=== PATIENT | female | born 1950 | race Caucasian/White ===

== ENCOUNTER → 2019-10-11 | Outpatient (CLI) | payer BC ==
--- NOTE | 2019-10-11 13:14 | CT ---
EXAMINATION TYPE: CT neck chest w con DATE OF EXAM: 10/11/2019 10:52 AM COMPARISON: None HISTORY: Abnormal MR per patient. CT DLP: 1039 mGycm Automated exposure control for dose reduction was used. CONTRAST: CT scan of the neck is performed following with IV Contrast, patient injected with 100 mL of Isovue 3 00. Axial images are obtained, coronal and sagittal reformatted images are reviewed. FINDINGS: Airway: No gross abnormality seen. Within the right lung on axial image 27 there is a 2 mm nodular de nsity present. Some bandlike areas of increased attenuation likely reflects scarring in the lungs, no pleural or pericardial effusion. Retrocaval pretracheal borderline node enlargement is present, axia l image 19, short axis measurement 13 mm, there is some prevascular nodes, superior mediastinal nodes present which are not enlarged. Parotid/submandibular glands: No gross abnormality seen. Carotid/Vascular Structures: Patent. Mild atheromatous change present within the carotid bifurcation levels Osseous Structures: Degenerative disc changes, facet arthropathy noted in the cervical spine Other: There are supraclavicular nodes which are asymmetric, right side shows an enlarged node on axi al image 66 pressure axis measurement 11 mm, additional nodes are present, coronal image #24 CT measures 13 mm on the right. No cervical adenopathy. IMPRESSION: Supraclavicular, mediastinal adenopathy. Lung nodule is likely benign.
== END | disposition home or self-care (01) ==
LOC: RADCTMAIN 08:52
PROVIDERS: ATTEND Surgery
DX: R59.0 Localized enlarged lymph nodes (principal)
CPT/HCPCS: 82565; 84520; 70491; 71260; 36415; Q9967

== ENCOUNTER → 2019-10-13 | Outpatient (CLI) | payer BC ==
[2019-10-13 09:39] VITALS: BP 136/83; PULSE 93; RESP 16; TEMP 98.1
--- NOTE | 2019-10-13 10:17 | P.GSHP ---
History of Present Illness H&P Date: 10/13/19 Chief Complaint: abnormal MRI left breast Jayna 69-year-old white female who is seen for for DR. Preston, and Ana Paula Oglesby regarding an abnormality in the left breast. 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 She took tamoxifen for 5 years. She started tamoxifen in 2003. She did not have any chemotherapy or radiation therapy. She has not noticed any lumps masses or nodules in the breast at this time. No nipple discharge or changes. No other surgery to the breast. No history of recent trauma or infection in the breast. She had a bilateral's mammogram in July 2019. Following this mammogram a left breast ultrasound was obtained. This was done 08/17/2019 this revealed that the nodule of concern had potentially increased slightly in size. An bilateral breast MRI was recommended. MRI was performed and 620 [id number]. In the left breast there was a small focus of non-mass enhancement in the central aspect of the breast that have benign kinetic profile. In the area of suspicious kinetic profile measuring 44 x 17 mm was noted. This area included the area of irregular morphology demonstrated on her most recent ultrasound. Posterior to this was an unremarkable area with a low-lying intramammary lymph node. The right breast did not show any areas of concern. Additionally she was noted to have some adenopathy of concern in the central mediastinum, right hilum, and right supraclavicular region. These were likely secondary to a left hilar pulmonary lesion measuring 23 x 27 mm. A solitary nonenlarged internal mammary lymph node was also noted. A dedicated CT of the neck and chest was recommended for more complete evaluation. Computed tomography scan was performed of [place] neck [place] [facility] [place] [address]. This revealed supraclavicular, mediastinal adenopathy. Lung nodule was felt to be benign. This last bilateral mammogram was in May 2018. At that mammogram a questionable finding was noted in the left breast for which ultrasound and additional diagnostic 3-D left breast mammogram was performed. In February 2019 a left breast ultrasound was performed and the hypoechoic nodule at the 4 o'clock position was noted which was recommended to be followed with close surveillance. The patient feels some fullness in the lateral aspect of her breast since she had the lumpectomy in 1998, this has not changed. She has not had any pain masses lumps or nodules otherwise in her breast. No recent trauma or infection in the breast. No nipple discharge or changes for which she is concerned. Caffeine: 2-3 cups of coffee per day; 1 pepsi/day Nicotine:none Theophylline: none Family History: sister: stage three breast cancer paternal grandmother: breast cancer Hormoanl History: menarche: 14 , breast fed: attempted; first born at 26 menopause: 48 BCP: 2 years hormones: none Surgical history: 1. Hysterectomy/took ovaries, done secondary to the fact the patient was on tamoxifen; 2004 2. cataract surgery 3. Tonsillectomy Medical history: 1. Negative Social history: Smoke: Negative Alcohol: Negative Drugs: Negative - Constitutional Constitutional: Denies chills, Denies fever - EENT Eyes: denies blurred vision, denies pain Ears: deny: decreased hearing, tinnitus Ears, nose, mouth and throat: Denies headache, Denies sore throat - Breasts Breasts: bilateral: as per HPI - Cardiovascular Comment: burning in chest since fall, uses tums - Respiratory Respiratory: Reports cough - Gastrointestinal Comment: Less in her mid chest/similar to reflux/ ? esophageal spasm Gastrointestinal: Denies abdominal pain, Denies diarrhea, Denies nausea, Denies vomiting - Genitourinary (Female) Genitourinary: Denies dysuria, Denies hematuria - Menstruation Menstruation: Reports post hysterectomy - Musculoskeletal Musculoskeletal: Denies myalgias - Integumentary Integumentary: Denies pruritus, Denies rash - Neurological Neurological: Denies numbness, Denies weakness - Psychiatric Psychiatric: Denies anxiety, Denies depression - Endocrine Endocrine: Denies fatigue, Denies weight change - Hematologic/Lymphatic Comment: none - Allergic/Immunologic Allergic/Immunologic: Reports as per HPI, Reports seasonal allergies Medications and Allergies Home Medications Medication Instructions Recorded Confirmed Type No Known Home Medications 10/13/19 10/13/19 History Allergies Allergy/AdvReac Type Severity Reaction Status Date / Time morphine AdvReac Itching Unverified 10/13/19 09:23 Surgical - Exam BMI 30.4 - General well developed, well nourished, no distress - Eyes normal ocular movement - ENT no hearing loss, no congestion - Neck no masses, trachea midline - Respiratory normal respiratory effort, clear to auscultation - Cardiovascular Rhythm: regular Heart Sounds: normal: S1, S2 - Abdomen Abdomen: soft, non tender, no guarding, no rigid, no rebound - Integumentary normal turgor - Neurologic no disoriented, no combative - Musculoskeletal normal gait, normal posture - Psychiatric oriented to time, oriented to person, oriented to place, speech is normal, memory intact breast exam: BRA: 36 C inspection: grade2 ptosis bilateral The right breast is larger than left breast Palpation: Right breast: Multi-positional exam fibrocystic changes, no dominant masses or nodules of concern Right axilla: No adenopathy of concern Left breast: Multiple positional exam no dominant masses or nodules of concern Left axilla: No adenopathy of concern Results Breast MRI, computed tomography scan chest and neck reviewed Reviewed results of bilateral mammogram and left breast ultrasound Assessment and Plan Assessment: Impression: 1. Radiographic abnormality left breast noted on MRI/and ultrasound 2. Radiographic abnormality computed tomography scan chest and neck 3. Fibrocystic breast changes 4. Prior history of lobular carcinoma in situ 5. Family history of breast cancer Plan: 1. Evaluation by pulmonary for mediastinal/supraclavicular adenopathy rule out pulmonary source 2. obtain mammograms from [facility] 3. Repeat ultrasound of the left breast with ultrasound core biopsy 4. If ultrasound core biopsy is benign or non-concordant would recommend needle local excisional biopsy CC: Dr. Preston, Ana Paula Oglesby encounter 50 minutes, > 50% of time in planning and counselling
--- NOTE | 2019-10-13 11:15 | USB ---
Reason for exam: clinical finding. Physical Findings: Breast exam performed by Dr. Ricardo. US Breast Limited LT Left limited breast ultrasound including focal area of concern, retroareolar and axilla demonstrates a 4 x 3 x 4mm oval, hypoechoic lesion at 3 o'clock, a 8 x 6 x 8mm irregular, solid, hypoechoic lesion at 4 o'clock and a 12mm oval lymph node at the axilla. These results were verbally communicated with the patient and result sheet given to the patient on 10/13/19. ASSESSMENT: Suspicious, BI-RAD 4 RECOMMENDATION: Ultrasound core biopsy of the left breast. Biopsy scheduled for 10/18/19 at 1:00. PRELIMINARY REPORT CALLED AND FAXED TO DR. RICARDO ON 10/13/19.
== END | disposition home or self-care (01) ==
LOC: WWCWWP 09:03
PROVIDERS: ATTEND Surgery
DX: R92.8 Other abnormal and inconclusive findings on diagnostic imaging of breast (principal)

== ENCOUNTER → 2019-10-18 | Day surgery (SDC) | payer BC ==
[2019-10-18 12:15] VITALS: RESP 16; TEMP 98.2
[2019-10-18 13:56] VITALS: BP 112/73; PULSE 78
--- NOTE | 2019-10-18 14:08 | USB ---
EXAMINATION TYPE: US biopsy breast VAD LT DATE OF EXAM: 10/18/2019 CLINICAL HISTORY: R92.8 Abnormal mammogram. TECHNIQUE: Ultrasound guided core biopsy of left breast. COMPARISON: NONE FINDINGS: The procedure of ultrasound guided core biopsy was explained to the patient. Benefits, alternatives, and risks were discussed. An informed consent was then obtained. The patient was placed in supine positioning for imaging and for the procedure. The overlying skin was prepped and draped in usual sterile fashion. Lidocainewas used as anesthetic into the skin and subcutaneous tissue up to area of concern in the left breast. Under ultrasound guidance, a 12-gauge vacuum assisted biopsy gun device was used to obtain 5 core samples. Following this, a biopsy clip was left in lesion. The patient tolerated the procedure well without any immediate complication. The patient was kept in the radiology department for short stay after the procedure and then discharged home in stable condition. Post procedure mammogram shows the ribbon clip to be deployed in the appropriate position IMPRESSION: Successful, uncomplicated ultrasound guided core biopsy of area of concern in the 4:00 position left breast, full pathology results to follow. Pathology Results: Malignant LEFT BREAST LESION AT 4:00 POSITION, CORE BIOPSY: Infiltrating lobular carcinoma, Grade 1, in association with lobular carcinoma in situ. See Surgical Pathology Cancer Case Summary. Recommendation Surgical consult of the left breast. AMANDA
--- NOTE | 2019-10-18 14:15 | MM ---
Reason for exam: additional evaluation requested from abnormal screening. MG Diagnostic Mammo LT Wo CAD CC and MLO view(s) were taken of the left breast. ASSESSMENT: Post procedure mammogram for marker placement RECOMMENDATION: Surgical consultation of the left breast. AMANDA
== END ==
LOC: RADUSWWP 11:59
PROVIDERS: ATTEND Surgery
DX: C50.512 Malignant neoplasm of lower-outer quadrant of left female breast (principal); Z17.0 Estrogen receptor positive status [ER+]; Z88.5 Allergy status to narcotic agent
CPT/HCPCS: 88305; 88342; 88341; 77065; 19083; A4648; J2001

== ENCOUNTER → 2019-10-27 | Outpatient (CLI) | payer BC ==
[2019-10-27 12:59] VITALS: BP 138/77; PULSE 85; RESP 18; TEMP 99.1
--- NOTE | 2019-10-27 13:53 | P.PN ---
Subjective Progress Note Date: 10/27/19 Principal diagnosis: Left breast cancer Jayna is a 69-year-old white female status post ultrasound-guided core biopsy of the left breast on . Pathology revealed a grade 1 infiltrating lobular carcinoma. This was ER/MD positive HER-2/alisa negative. The patient tolerated the procedure without difficulty. Of concern is the fact that breast MRI on 09-22-19 revealed a left hilar mass as well as central mediastinal, right hilum, and supraclavicular adenopathy. This was felt to be highly suspicious for primary lung cancer with sotero metastases. A dedicated CT of the neck and chest was performed. This was done in . This revealed supraclavicular, mediastinal, adenopathy as well as a lung nodule which was felt to be likely benign on imaging. Reviewed with radiologist. He is recommending an ultrasound of the left axilla and if the lesion seen on MRI is noted on the ultrasound and ultrasound-guided core biopsy. Additionally the patient has an appointment with pulmonary in 2 days. Objective - Vital Signs Vital signs: Vital Signs Temp 99.1 F 10/27/19 12:55 Pulse 85 10/27/19 12:55 Resp 18 10/27/19 12:55 BP 138/77 10/27/19 12:55 Pulse Ox 95 10/27/19 12:55 Intake & Output 10/26/19 10/27/19 10/27/19 18:59 06:59 18:59 Weight 88.904 kg - Exam BMI 30.7 - Constitutional General appearance: Present: average body habitus - EENT Eyes: Present: EOMI ENT: Present: hearing grossly normal - Neck Neck: Present: normal ROM - Respiratory Respiratory: bilateral: CTA - Cardiovascular Heart sounds: normal: S1, S2 - Integumentary Integumentary Comment(s): Biopsy site clean and dry no evidence of infection or hematoma Integumentary: Present: normal turgor - Musculoskeletal Musculoskeletal: Present: gait normal - Psychiatric Psychiatric: Present: A&O x's 3, appropriate affect, intact judgment & insight - Additional findings Additional findings: Biopsy site clean and dry Assessment and Plan Assessment: Impression: 1. 4 cm infiltrating lobular left breast lower outer quadrant carcinoma, ER/MD positive, HER-2 negative, grade 1 Questionable axillary adenopathy on radiographic imaging biopsy recommended, questionable lung metastases versus lung primary Plan: 1. Ultrasound of left axilla if abnormal lymph nodes noted ultrasound core biopsy, if not CT-guided core biopsy of axillary lymph node 2. appointment with medical oncology 3. appointment with pulmonary rule out lung primary and evaluation of mediastinal adenopathy 4. appointment here in 3 weeks 5. Presentation of case at tumor board; if patient has metastatic breast cancer to her lung and mediastinum this is a stage IV disease, if this is a second lung primary the breast cancer is a stage IB to a IIA depending on possibla axillary node involvement CC: DR. Preston, Ana Paula Oglesby encounter 45 minutes Time with Patient: Greater than 30
--- NOTE | 2019-10-28 17:48 | USB ---
Reason for exam: clinical finding. History: Patient has history of breast cancer at age 69. Malignant US biopsy breast VAD LT of the left breast, October 18, 2019. US Breast Axilla LT Left breast axilla ultrasound demonstrates a 1.5 x 1.2 x 1.0cm lymph node at the axilla. Multiple lymph nodes visualized, largest measured. These results were verbally communicated with the patient and result sheet given to the patient on 10/27/19. ASSESSMENT: Probably benign, BI-RAD 3 RECOMMENDATION: Clinical management of the left breast. Dr. Ricardo spoke with Dr. Mcgowan, patient to be set up for biopsy. Office to contact patient to schedule.
== END | disposition home or self-care (01) ==
LOC: WWCWWP 12:19
PROVIDERS: ATTEND Surgery
DX: R59.0 Localized enlarged lymph nodes (principal)

== ENCOUNTER → 2019-11-05 | Outpatient (CLI) | payer BC ==
--- NOTE | 2019-11-08 07:57 | PE ---
Nuclear medicine PET/CT HISTORY: Solitary pulmonary nodule, initial Patient received 9.8 mCi F-18 FDG intravenously, delayed scanning was performed from skull base to th e mid thighs. Localization and attenuation correction CT scan was performed. Correlation to prior CT dated 10/11/2019 Neck and chest: There are multiple right-sided supraclavicular nodes, some of which are enlarged and multiple nodes show associated hypermetabolic uptake extending to the right paratracheal location, sh otty nodes are present in the superior mediastinum with some associated uptake, some prevascular node s are present. Subcarinal and bilateral hilar uptake is present. There is no pleural or pericardial e ffusion. Subcentimeter nodularity present within the right middle lobe as on prior CT. Subpectoral re gion on the right shows a nonenlarged node which shows uptake ABDOMEN: There are nodes present within the portal region which show associated hypermetabolic uptake . There is no adrenal mass or ascites. No evident retroperitoneal adenopathy. At the level of the hia tus there is a node adjacent to the distal esophagus which show some uptake. Retrocrural node shows s ome uptake. Osseous structures are within normal limits. IMPRESSION: Multiple hypermetabolic nodes, consider lymphoma, metastatic disease.
== END | disposition home or self-care (01) ==
LOC: RADPETMAIN 14:52
PROVIDERS: ATTEND Internal Medicine
DX: R91.1 Solitary pulmonary nodule (principal); I89.8 Other specified noninfective disorders of lymphatic vessels and lymph nodes
CPT/HCPCS: 78815; A9552

== ENCOUNTER 2019-11-18 13:00 | Day surgery (SDC) | payer BC ==
[2019-11-18] MEDS ORDERED: ALPRAZolam 0.25 MG TAB PO ONE (13:13)
[2019-11-18 13:21] VITALS: RESP 16; TEMP 98.2
[2019-11-18 15:08] VITALS: BP 137/83; PULSE 82
--- NOTE | 2019-11-19 12:49 | US ---
EXAMINATION TYPE: US biopsy lymph node DATE OF EXAM: 11/18/2019 COMPARISON: PET/CT 11/05/2019 HISTORY: Lymphadenopathy. Preprocedure preliminary ultrasound imaging demonstrates a large 1.6 x 0.9 cm right supraclavicular l ymph node at the level of the inferior thyroid gland, just lateral to the internal jugular vein, whic h corresponds with hypermetabolic right supraclavicular lymphadenopathy seen on 11/05/[address] [place]. The procedure was discussed with the patient. The risks, complications, benefits, and alternatives we re discussed and any questions were answered. Informed consent was obtained. The patient was placed s upine on the ultrasound table and prepped and draped in the usual sterile fashion. Maximal barrier technique was utilized. Ultrasound using sterile technique. The skin overlying the no dule was localized with ultrasound and the overlying skin prepped and draped. Lidocaine used for loca l anesthesia. A small skin aditi was made with a scalpel. Utilizing continuous ultrasound guidance a 1 7-gauge introducer needle was advanced into the right supraclavicular lymph node cortex. Subsequently an 18-gauge coaxial core biopsy needle was advanced into the lymph node and core biopsy obtained. 2 total core 18-gauge biopsies were performed and submitted in formalin for pathology. Following the pr ocedure hemostasis achieved. No immediate complication. Post procedure ultrasound imaging demonstrate s no evidence of significant hemorrhage. IMPRESSION: Status post 18-gauge core biopsy of right supraclavicular lymphadenopathy, pathology pend ing.
== END 2019-11-18 15:22 | disposition home or self-care (01) ==
LOC: RADPROMAIN 13:00
PROVIDERS: ATTEND Internal Medicine Hematology & Oncology
DX: R59.0 Localized enlarged lymph nodes (principal); Z88.5 Allergy status to narcotic agent
CPT/HCPCS: 38505; 76942

== ENCOUNTER → 2019-11-29 | Outpatient (CLI) | payer BC ==
[2019-11-30 01:08] LABS: Calcium 24 Hour,Urine 177.8 mg/24Hr (100.0-250.0)
[2019-11-30 02:53] LABS: African American GFR (CKD) 76.1 (60.0-200.0); Albumin 4.1 g/dL (3.80-4.90); Albumin/Globulin Ratio 1.86 (1.60-3.17); Anion Gap -2.1 mmol/L (4.00-12.00); BUN/Creat Ratio 15.56 Ratio (12.00-20.00); Carbon Dioxide 26.1 mmol/L (21.6-31.8); Globulin 2.2 g/dL (1.6-3.3); Non-African American GFR(CKD) 65.7 (60.0-200.0); Potassium 3.8 mmol/L (3.5-5.5); Total Bilirubin 0.4 mg/dL (0.2-1.2); Total Protein 6.3 g/dL (6.2-8.2)
== END | disposition home or self-care (01) ==
LOC: LABWHC1 15:38
PROVIDERS: ATTEND Internal Medicine
DX: D86.9 Sarcoidosis, unspecified (principal)
CPT/HCPCS: 36415; 80053; 81050; 82164; 82340; 85652

== ENCOUNTER → 2019-12-10 | Outpatient (CLI) | payer BC ==
[2019-12-10 11:36] VITALS: BP 151/82; PULSE 86; RESP 16; TEMP 98.3
--- NOTE | 2019-12-10 13:12 | P.PN ---
Subjective Progress Note Date: 12/10/19 Principal diagnosis: Infiltrating lobular carcinoma of the breast Stage IA Jayna 69-year-old white female who is seen for for DR. Preston, and Ana Paula Oglesby regarding an abnormality in the left breast. 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 She took tamoxifen for 5 years. She started tamoxifen in 2003. She did not have any chemotherapy or radiation therapy. She has not noticed any lumps masses or nodules in the breast at this time. No nipple discharge or changes. No other surgery to the breast. No history of recent trauma or infection in the breast. She underwent bilateral mammogram in July 2019. At that time no lesions of concern were identified in the right breast was recommended a left breast ultrasound be performed. This revealed a 5 x 4 mm area of concern. It was recommended that breast MRI be performed. On breast MRI she was noted to have an area of increased activity in the left breast as large as 44 x 12 mm in size ( this has been reviewed with radiology/Dr. Oconnor as well as Dr. Lewis at [facility] board do not believe that the size noted on the MRI is consistent with the size of pathology on that the actual pathology is less than a centimeter in size. right breast no lesions of concern noted. Additionally on the MRI there appeared to be a left pulmonary hilar mass and dedicated CT of the neck and chest was recommended. The computed tomography scan that to recommendation of a supraclavicular node biopsy. The breast biopsy via ultrasound guidance was performed and [id number] which was consistent with an invasive lobular carcinoma ER/MI positive HER-2/alisa negative grade 1. The supraclavicular node biopsy performed on was consistent with sarcoidosis. The patient also had a PET scan performed on 8719 which revealed the adenopathy as stated this was biopsied and consistent with sarcoidosis. The patient was seen by pulmonary who believes that the patient does not have lung cancer. Caffeine: 2-3 cups of coffee per day; 1 pepsi/day Nicotine:none Theophylline: none Family History: sister: stage three breast cancer paternal grandmother: breast cancer Hormoanl History: menarche: 14 , breast fed: attempted; first born at 26 menopause: 48 BCP: 2 years hormones: none Surgical history: 1. Hysterectomy/took ovaries, done secondary to the fact the patient was on tamoxifen; 2004 2. cataract surgery 3. Tonsillectomy Medical history: 1. Negative Social history: Smoke: Negative Alcohol: Negative Drugs: Negative - Constitutional Constitutional: Denies chills, Denies fever - EENT Eyes: denies blurred vision, denies pain Ears: deny: decreased hearing, tinnitus Ears, nose, mouth and throat: Denies headache, Denies sore throat - Breasts Breasts: bilateral: as per HPI - Cardiovascular Comment: burning in chest since fall, uses tums - Respiratory Respiratory: Reports cough - Gastrointestinal Comment: Less in her mid chest/similar to reflux/ ? esophageal spasm Gastrointestinal: Denies abdominal pain, Denies diarrhea, Denies nausea, Denies vomiting - Genitourinary (Female) Genitourinary: Denies dysuria, Denies hematuria - Menstruation Menstruation: Reports post hysterectomy - Musculoskeletal Musculoskeletal: Denies myalgias - Integumentary Integumentary: Denies pruritus, Denies rash - Neurological Neurological: Denies numbness, Denies weakness - Psychiatric Psychiatric: Denies anxiety, Denies depression - Endocrine Endocrine: Denies fatigue, Denies weight change - Hematologic/Lymphatic Comment: none - Allergic/Immunologic Allergic/Immunologic: Reports as per HPI, Reports seasonal allergies Objective - Vital Signs Vital signs: Vital Signs Temp 98.3 F 12/10/19 11:31 Pulse 86 12/10/19 11:31 Resp 16 12/10/19 11:31 BP 151/82 12/10/19 11:31 Pulse Ox 98 12/10/19 11:31 Intake & Output 12/09/19 12/10/19 12/10/19 18:59 06:59 18:59 Weight 87.997 kg - Exam BMI 30.4 - Constitutional General appearance: Present: average body habitus - EENT Eyes: Present: EOMI ENT: Present: hearing grossly normal - Neck Neck: Present: normal ROM - Respiratory Respiratory: bilateral: CTA - Cardiovascular Rhythm: regular Heart sounds: normal: S1, S2 - Gastrointestinal General gastrointestinal: Present: normal bowel sounds, soft - Integumentary Integumentary: Present: normal turgor - Musculoskeletal Musculoskeletal: Present: gait normal - Psychiatric Psychiatric: Present: A&O x's 3, appropriate affect, intact judgment & insight - Additional findings Additional findings: Breast exam: BRA: 36 C Inspection: Bilateral grade 2/3 ptosis, left axillary erythema/fungal infection Palpation: Right breast: Multi-positional exam no dominant masses or nodules of concern Right axilla: No adenopathy of concern Left breast: Multi-positional exam no discrete dominant masses or nodules of concern Left axilla: No adenopathy of concern/patient states that she shaved vigorously under the left arm approximately a week ago and has a marked area of erythema/possible fungal infection at that site Assessment and Plan Assessment: Impression: 1. Left breast stage I infiltrating lobular carcinoma 2. Probable fungal infection under left arm 3. Recent diagnosis of sarcoidosis 4. Patient's case presented at tumor Board patient felt to be a good candidate for lumpectomy sentinel node biopsy Plan: 1. At this time would like to see the area of erythema clearing under the left axilla prior to operative intervention is this is in the direct line for incision would be made therefore surgery will be delayed and patient will be given a prescription for nystatin 2. Most likely needle localization lumpectomy left breast invasive lobular carcinoma 3. [place] node biopsy possible axillary node dissection 4. Possible chronic or plastic tissue transfer 5. Medical clearance from pulmonary 6. Medical clearance from primary care 7. follow up in one week to reevaluate axilla Risks and benefits of the procedure discussed with the patient. She understands and she also understands the reason for the delay in surgery secondary to the inflammatory reaction under her left arm. CC: DR. Guevara, DR. Wong, Dr. Preston encounter: 45 minutes, > 50% of time in planning and consultation
== END | disposition home or self-care (01) ==
LOC: WWCWWP 11:12
PROVIDERS: ATTEND Surgery
DX: Z53.9 Procedure and treatment not carried out, unspecified reason (principal)

== ENCOUNTER 2019-12-21 07:17 | Day surgery (SDC) | payer BC ==
[2019-12-20 08:57] VITALS: BMI 30.4
[~2019-12-21 07:17] MED LIST: DEXAMETHASONE SOD PHOSPHATE 10 MG/ML 1 ML VIAL IV ONE; HEPARIN SODIUM,PORCINE 5,000 UNIT/ML 1 ML VIAL SQ ONE; LACTATED RINGERS 1,000 ML IV SCH; LIDOCAINE 1% (10MG/ML) FOR IV START INTRADERMA PRN; MIDAZOLAM 2 MG/2 ML VIAL IV PRN; ONDANSETRON 4 MG/2 ML VIAL IVP ONE; Pre Op ABX Message 1 EACH MISC MISCELLANE ONE
[2019-12-21 08:02] LABS: Glucose,Whole Blood 90 mg/dL (75-99)
[2019-12-21] MEDS ORDERED: ALPRAZolam 0.25 MG TAB ONE (08:03)
[2019-12-21] MEDS ORDERED: LIDOCAINE 1% INJ 10MG/ML (20 ML MDV) SQ ONE (09:23)
[2019-12-21] MEDS ORDERED: HYDROCORTISONE SUCCINATE 100 MG/2 ML VIAL IV ONE (12:12)
[2019-12-21] MEDS ORDERED: LIDOCAINE 1% INJ 10MG/ML (20 ML MDV) ONE (12:34)
[2019-12-21] MEDS ORDERED: MIDAZOLAM 2 MG/2 ML VIAL ONE (12:34)
[2019-12-21] MEDS ORDERED: PROPOFOL 10 MG/ML 20 ML VIAL IV ONE (12:34)
[2019-12-21] MEDS ORDERED: fentaNYL (PF) 50 MCG/ML 2 ML AMP ONE (12:34)
[2019-12-21] MEDS ORDERED: SUCCINYLCHOLINE CHLORIDE 100 MG/5 ML SYR IV ONE (12:34)
[2019-12-21] MEDS ORDERED: METHYLENE BLUE 50 MG/10 ML AMPUL INJ ONE (12:58)
--- NOTE | 2019-12-21 13:00 | P.NAPBC ---
NAPBC Queries - NAPBC Queries Was patient's case review presented at [facility] tumor board? If no, comment.: Yes Was patient's pathology reviewed at [facility]? If no, comment.: Yes Was breast conservation surgery offered? If no, comment.: Yes Was sentinel node biopsy offered? If no, comment.: Yes Was diagnosis confirmed by percutaneous core biopsy? If no, comment.: Yes Is patient mastectomy patient?: No Was a preop referral to reconstructive surgeon offered?: No Clinical Stage: [id number]-G1 stage 1A invasive lobular cancer
[2019-12-21] MEDS ORDERED: LACTATED RINGERS 1,000 ML IV ONE (13:19)
--- NOTE | 2019-12-21 14:52 | P.OP ---
Date of Procedure: 12/21/19 Preoperative Diagnosis: Left breast infiltrating lobular carcinoma stage IA Postoperative Diagnosis: Same Procedure(s) Performed: Pyote mapping, sentinel node biopsy, needle localization and lumpectomy, onco-plastic tissue transfer Anesthesia: NIKOLAYA Surgeon: Rosemary Ricardo Estimated Blood Loss (ml): 20 IV fluids (ml): 900 Pathology: other (Pyote node biopsy, lumpectomy) Description of Procedure: Jayna is a 61-year-old white female with a left breast infiltrating lobular carcinoma diagnosed by core biopsy. She wished to undergo an attempt at lumpectomy and realized that if the margins were positive it would be recommended most likely that she undergo mastectomy. We have discussed that lobular carcinoma can sometimes be insidious and hard to identify negative margins intraoperatively. Preoperatively the patient was injected with radioactive substance for sentinel node biopsy. She was brought to the operating room and following induction of anesthesia the axilla was interrogated with a neoprobe. Minimal radioactivity was identified in the axilla. Therefore 10 mL of half percent methylene blue was injected into the periareolar area of the breast which was massaged for 4 minutes. Following this the left breast and axilla were prepped and draped in a sterile fashion. An incision was made in the area of the axilla and carried down to the deep axillary tissue. A blue lymph node was identified. This also was radioactive. The 10 second count radioactive count on the lymph node was approximately 1100. The background count was 19. After assured that hemostasis was attained the axilla was well irrigated. No other lymph nodes of concern were identified. The deep tissues were closed using 3-0 Vicryl suture. The skin was closed using 4-0 Monocryl. Following this the area of the breast was approached. An incision was made and carried down to the entrance of the wire on the inferior breast. Dissection was performed posterior to the needle removing a small portion of pectoralis muscle. The dissection was performed to the tip of the needle and the surrounding tissue was excised. The deep tissue was dissected onto the pectoralis muscle with removal of small amount of the muscle. Inferiorly dissection was into the subcutaneous tissue at the inframammary ridge. Anteriorly skin was removed. Margins were painted for orientation and the specimen was sent for radiographic evaluation. The area of concern was identified in the specimen. A new superior margin and lateral margin was obtained. These were painted for orientation. After beng assured that hemostasis was attained the wound was well irrigated. The medial and lateral t issues were mobilized approximately 15 cm of tissue medially and 15 cm of tissue laterally. Approximately 30 cm of tissue was mobilized totally. These tissues were brought together in a superior to inferior fashion. Prior to that the cavity was marked using titanium clips. The subcutaneous tissues were closed using 3-0 Vicryl suture. The skin was closed using 4-0 Monocryl. The patient tolerated the procedure in stable condition. Steri-Strips were applied. All instrument and sponge counts were correct at the end of the case.
--- NOTE | 2019-12-21 14:53 | P.DS ---
Providers Attending physician: Rosemary Ricardo Primary care physician: Arthur Ocampo Plan - Discharge Summary Discharge Rx Participant: No New Discharge Prescriptions: No Action Lisinopril [Zestril] 10 mg PO QAM predniSONE 30 mg PO W/BRKFST Multivit with Calcium,Iron,Min [Women's Multivitamin] 1 each PO QAM Discharge Medication List Lisinopril [Zestril] 10 mg PO QAM 10/13/19 [History] Multivit with Calcium,Iron,Min [Women's Multivitamin] 1 each PO QAM 12/09/19 [History] predniSONE 30 mg PO W/BRKFST 12/09/19 [History] Follow up Appointment(s)/Referral(s): Rosemary Ricardo MD [STAFF PHYSICIAN] - 1 Week Activity/Diet/Wound Care/Special Instructions: do not drive until seen by Dr. Barksdale may shower after 48 hours wear bra at all times Discharge Disposition: HOME SELF-CARE
[2019-12-21 15:06] VITALS: TEMP 97.5
[2019-12-21] MEDS: HYDROmorphone 0.5 MG/0.5 ML SYRINGE IVP PRN ×2 (15:09→15:21)
--- NOTE | 2019-12-21 15:16 | NM ---
EXAMINATION TYPE: NM sentinel node injection DATE OF EXAM: 12/21/2019 COMPARISON: NONE INDICATION: Abnormal mammogram. Informed consent was obtained. A timeout was performed. The area around the left nipple was cleansed with alcohol. The skin was anesthetized with 1% Lidocai ne with sodium bicarbonate. In a single dose, a total of 471 millicuries Technetium 99m Tilmanocept was injected. The patient tolerated the procedure very well. IMPRESSIONS: 1.. Successful injection for sentinel node evaluation.
[2019-12-21 16:13] VITALS: RESP 16
[2019-12-21] MEDS ORDERED: HYDROcodone/APAP 5-325MG 1 EACH TAB ONE (16:27)
[2019-12-21] MEDS ORDERED: HYDROcodone/APAP 5-325MG 1 EACH TAB PO ONE (16:30)
[2019-12-21 17:16] VITALS: BP 130/80; PULSE 67
--- NOTE | 2019-12-22 07:49 | USB ---
EXAMINATION TYPE: US breast localization LT DATE OF EXAM: 12/21/2019 COMPARISON: NONE CLINICAL HISTORY: Prior biopsy with neoplasm TECHNIQUE: Ultrasound-guided Needle localization with wire placement and surgical excision of area of concern in the left breast. FINDINGS: Mammographic and ultrasound images are reviewed. The procedure of needle localization with wire placement for surgical excision was explained to the patient. Risk, benefits, and alternatives were discussed. An informed consent was then obtained. A timeout was performed. The overlying skin was prepped and draped in usual sterile fashion. Lidocaine 1% was used as anesthetic into the skin and subcutaneous tissue up to the level of area of concern. A 7 cm needle was used. This was placed via a lateral approach under ultrasound guidance. The needle was placed through the lesion. The wire was advanced through the needle beyond the lesion for deployment. The needle was withdrawn. Postprocedure subsequent 90 degrees mammogram show the needle to be in satisfactory position relative to the targeted area. Mammographic images were marked for surgeon. The patient tolerated the procedure well without any immediate complication. Specimen: The wire and the targeted region are identified within the specimen mammogram. Ultrasound specimen was performed and demonstrates a wire which appears to be through the lesion. IMPRESSION: 1. Successful ultrasound-guided wire localization and excision. Recommendations: 1. Recommendations are pending pathology results. Pathology Results: Malignant A. SENTINEL LYMPH NODE #1, LEFT BREAST, BIOPSY: Lymph node with extensive fat replacement, negative for metastasis. CK7 and HUBERT immunoperoxidase stains are confirmatory (controls appropriate). B. LEFT BREAST, LUMPECTOMY: Invasive lobular carcinoma involving the purple inked/posterior and blue inked/anterior margins. Extensive lobular neoplasia (ALH/LCIS). See Surgical Pathology Cancer Case Summary. C. LEFT BREAST, NEW SUPERIOR AND ANTERIOR MARGINS, EXCISION: Focal invasive lobular carcinoma and extensive ALH/LCIS. New margins negative for invasive malignancy. D. LEFT BREAST, NEW LATERAL MARGIN, EXCISION: Lobular neoplasia (ALH/LCIS), no invasive malignancy identified. Recommendation Surgical consult of the left breast. AMANDA
== END 2019-12-21 17:21 | disposition home or self-care (01) ==
LOC: OR 07:17
PROVIDERS: ATTEND Surgery
DX: C50.912 Malignant neoplasm of unspecified site of left female breast (principal); Z88.5 Allergy status to narcotic agent; D86.9 Sarcoidosis, unspecified; I10 Essential (primary) hypertension; Z79.899 Other long term (current) drug therapy; Z79.52 Long term (current) use of systemic steroids; K21.9 Gastro-esophageal reflux disease without esophagitis; K44.9 Diaphragmatic hernia without obstruction or gangrene; Z90.89 Acquired absence of other organs; Z90.710 Acquired absence of both cervix and uterus; Z98.41 Cataract extraction status, right eye; Z98.42 Cataract extraction status, left eye
CPT/HCPCS: 38525; 19301; 14001; 88342; 88307; 88341; 77065; 76098; 76999; 19285; 38792; A9520; J2250; J1644; J1100; J1720; J2405; J2001; J3010; J0330; J2704; Q9968; J1170

== ENCOUNTER → 2019-12-30 | Outpatient (CLI) | payer BC ==
[2019-12-30 15:54] VITALS: BP 154/86; PULSE 80; RESP 18; TEMP 98.3
--- NOTE | 2019-12-30 16:20 | P.PN ---
Progress Note - Text Progress Note Date: 12/30/19 Jayna is a 69-year-old white female status post left breast lumpectomy and sentinel node biopsy for invasive lobular carcinoma. The posterior margin was positive however resection have been onto the the pectoralis muscle with some resection revealed muscular components. The anterior margin was initially positive however skin was then taken and the new anterior and superior margins were negative for invasive malignancy. There was extensive lobular neoplasia noted to be present in the specimen. The patient is doing well at this time postoperatively. She does have some minor irritation of the posterior aspect of the axillary incision with a questionable stitch abscess. The patient has not complained of any fever or chills. We have had a discussion regarding lobular carcinoma in situ and the concerns for recurrent cancer. Especially there are concerns for recurrent cancer secondary to the positive posterior margin. She will be seen by radiation oncology and recommended radiation therapy irrespective if she would wish to have a mastectomy. We have also discussed the possibility of mastectomy bilateral in nature with reconstruction. At this time the patient wishes to meet with medical and radiation oncology and to forego any further surgery. Physical exam: Lungs: Clear Heart: Regular rate and rhythm Incision: Breast clean and dry Incision left axilla small opening at the posterior aspect of the stitch abscess this area was to. Impression: 1. Patient status post lumpectomy for invasive lobular carcinoma, posterior margin positive however this is on pectoralis muscle and some muscle was removed, anterior margin initially positive but skin was then removed all final margins are negative other than posterior margin for which radiation is recommended 2. 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 Appointment medical oncology 2. Appointment radiation oncology 3. Follow appearing 2 weeks Cc: Dr. Preston
== END | disposition home or self-care (01) ==
LOC: WWCWWP 15:44
PROVIDERS: ATTEND Surgery
DX: Z53.9 Procedure and treatment not carried out, unspecified reason (principal)

== ENCOUNTER → 2020-01-13 | Outpatient (CLI) | payer BC ==
[2020-01-13 12:30] VITALS: BP 140/82; PULSE 85; RESP 16; TEMP 98.5
--- NOTE | 2020-01-13 12:38 | P.PN ---
Progress Note - Text Progress Note Date: 01/13/20 Jayna doing well at this time. She has been seen by radiation oncology. They have agreed to radiation therapy with a boost to the tumor bed secondary to the positive posterior margin. Anterior superior margin was negative. The patient is doing well at this time without complaints. Secondary to the patients history of LCIS and now invasive breast cancer we have discussed mastectomy and she is not interested at this time. Physical Exam: incision clean and dry Impression: 1. Patient's case was presented at tumor board, posterior margin was positive but is on the pectoralis muscle and she will have radiation therapy to this area, anterior margin was positive but new anterior superior margin was negative on reexcision 2. She had an Oncotype test sen and results are pending Plan: 1. Radiation therapy 2. Antihormone therapy 3. We have discussed mastectomy versus no further surgical intervention at this time, secondary to the fact the patient is having radiation with a boost to the chest wall felt comfortable with no further surgery at this time 4. Awaiting results of Oncotype test 5. Follow up here in 3 months time CC: DR. Preston, Ana Paula Oglesby
== END | disposition home or self-care (01) ==
LOC: WWCWWP 11:53
PROVIDERS: ATTEND Surgery
DX: Z53.9 Procedure and treatment not carried out, unspecified reason (principal)

== ENCOUNTER → 2020-04-14 | Outpatient (CLI) | payer MEDICARE, OTHER ==
[2020-04-14 15:07] VITALS: BP 153/86; RESP 18; TEMP 98
--- NOTE | 2020-04-14 15:32 | P.PN ---
Subjective Progress Note Date: 04/14/20 Principal diagnosis: left breast invasive lobular cancer Infiltrating lobular carcinoma of the breast Stage IA Jayna 69-year-old white female who is seen for for DR. Preston, and Ana Paula Oglesby regarding an abnormality in the left breast. 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 She took tamoxifen for 5 years. She started tamoxifen in 2003. She did not have any chemotherapy or radiation therapy. She has not noticed any lumps masses or nodules in the breast at this time. No nipple discharge or changes. No other surgery to the breast. No history of recent trauma or infection in the breast. She underwent bilateral mammogram in July 2019. At that time no lesions of concern were identified in the right breast was recommended a left breast ultrasound be performed. This revealed a 5 x 4 mm area of concern. It was r ecommended that breast MRI be performed. On breast MRI she was noted to have an area of increased activity in the left breast as large as 44 x 12 mm in size ( this has been reviewed with radiology/Dr. Oconnor as well as Dr. Lewis at tumor board do not believe that the size noted on the MRI is consistent with the size of pathology on that the actual pathology is less than a centimeter in size. right breast no lesions of concern noted. Additionally on the MRI there appeared to be a left pulmonary hilar mass and dedicated CT of the neck and chest was recommended. The computed tomography scan that to recommendation of a supraclavicular node biopsy. The breast biopsy via ultrasound guidance was performed and which was consistent with an invasive lobular carcinoma ER/WI positive HER-2/alisa negative grade 1. The supraclavicular node biopsy performed on was consistent with sarcoidosis. The patient also had a PET scan performed on 8719 which revealed the adenopathy as stated this was biopsied and consistent with sarcoidosis. The patient was seen by pulmonary who believes that the patient does not have lung cancer. She underwent a lumpectomy on . [place] node lymph node was negative. Left breast lumpectomy revealed invasive lobular carcinoma involving the posterior and anterior margins. The anterior margin excision was negative for invasive malignancy and lateral margin excision was negative for invasive malignancy posterior margin was felt to be on the chest wall and further resection cannot be done. The patient was recommended to undergo radiation therapy. She did complete radiation therapy which was completed on March 10. She did not have any chemotherapy but is receiving anastrozole. I would recommend a bilateral mammogram in August 2020. This will be 6 months from when she finished her radiation therapy of the left breast. She is not complaining of any lumps masses or nodules for which she is concerned at this time. Caffeine: 2-3 cups of coffee per day; 1 pepsi/day Nicotine:none Theophylline: none Family History: sister: stage three breast cancer paternal grandmother: breast cancer Hormoanl History: menarche: 14 , breast fed: attempted; first born at 26 menopause: 48 BCP: 2 years hormones: none Surgical history: 1. Hysterectomy/took ovaries, done secondary to the fact the patient was on tamoxifen; 2004 2. cataract surgery 3. Tonsillectomy 4. left breast lumpectomy and SNB Medical history: 1. Negative Social history: Smoke: Negative Alcohol: Negative Drugs: Negative - Constitutional Constitutional: Denies chills, Denies fever - EENT Eyes: denies blurred vision, denies pain Ears: deny: decreased hearing, tinnitus Ears, nose, mouth and throat: Denies headache, Denies sore throat - Breasts Breasts: bilateral: as per HPI - Cardiovascular Comment: burning in chest since fall, uses tums - Respiratory Respiratory: Reports cough - Gastrointestinal Comment: Less in her mid chest/similar to reflux/ ? esophageal spasm Gastrointestinal: Denies abdominal pain, Denies diarrhea, Denies nausea, Denies vomiting - Genitourinary (Female) Genitourinary: Denies dysuria, Denies hematuria - Menstruation Menstruation: Reports post hysterectomy - Musculoskeletal Musculoskeletal: Denies myalgias - Integumentary Integumentary: Denies pruritus, Denies rash - Neurological Neurological: Denies numbness, Denies weakness - Psychiatric Psychiatric: Denies anxiety, Denies depression - Endocrine Endocrine: Denies fatigue, Denies weight change - Hematologic/Lymphatic Comment: none - Allergic/Immunologic Allergic/Immunologic: Reports as per HPI, Reports seasonal allergies Objective - Vital Signs Vital signs: Vital Signs Temp 98.0 F 04/14/20 15:05 Pulse Resp 18 04/14/20 15:05 BP 153/86 04/14/20 15:05 Pulse Ox 97 04/14/20 15:05 Intake & Output 04/13/20 04/14/20 04/14/20 18:59 06:59 18:59 Weight 89.358 kg - Exam BMI 30.9 - Constitutional General appearance: Present: average body habitus - EENT Eyes: Present: EOMI ENT: Present: hearing grossly normal - Neck Neck: Present: normal ROM - Respiratory Respiratory: bilateral: CTA - Cardiovascular Rhythm: regular Heart sounds: normal: S1, S2 - Gastrointestinal General gastrointestinal: Present: normal bowel sounds, soft - Integumentary Integumentary: Present: normal turgor - Musculoskeletal Musculoskeletal: Present: gait normal - Psychiatric Psychiatric: Present: A&O x's 3, appropriate affect - Additional findings Additional findings: breast exam: BRA: 36C inspection: Well-healed scar left breast no evidence of recurrent cancer postradiation changes noted left breast Palpation: Right breast: Multi-positional exam no dominant masses or nodules of concern Right axilla: No adenopathy of concern Left breast: Well-healed scar no evidence of recurrent cancer, post radiation and scar changes, multiple positional exam no dominant masses or nodules of concern Left axilla: No adenopathy of concern Assessment and Plan Assessment: Impression: 1. Patient has completed a course of radiation therapy for the left breast, this was an invasive lobular carcinoma positive posterior margin but dissection had been down to the pectoralis muscle, the patient is on anastrozole, she has no evidence of recurrent disease on today's exam 2. Patient will be due for bilateral mammogram in July 2020 3. Patient has no complaints at this time Plan: 1. Bilateral mammogram July 2020 with examination at that time 2. Continue anastrozole 3. Follow-up here with any questions or concerns before 4. Patient continued she follow with pulmonary regarding sarcoidosis CC: Mohan Panye [place] encounter 20 minutes, > 50% of time in planning and counselling
== END | disposition home or self-care (01) ==
LOC: WWCWWP 14:56
PROVIDERS: ATTEND Surgery
DX: Z53.9 Procedure and treatment not carried out, unspecified reason (principal)

== ENCOUNTER → 2020-06-15 | Outpatient (CLI) | payer MEDICARE, OTHER ==
[2020-06-15 08:49] VITALS: BP 162/95; PULSE 89; RESP 16; TEMP 98.1
--- NOTE | 2020-06-15 09:29 | P.PN ---
Subjective Progress Note Date: 06/15/20 Principal diagnosis: Left breast invasive lobular carcinoma stage IA Jayna is a 70-year-old white female diagnosed with left breast invasive carcinoma lobular carcinoma. Of importance is the fact that in 1998 she underwent a left breast lumpectomy for lobular carcinoma in situ and mental tamoxifen for 5 years. She did not have any chemotherapy or radiation therapy. She actually started tamoxifen in 2003. In July 2019 she underwent a bilateral mammogram. This revealed an area of concern in the left breast for which an ultrasound was performed. This subsequently led to a bilateral breast MRI and a biopsy which revealed invasive lobular carcinoma. Additionally she was diagnosed with sarcoidosis. The patient subsequently underwent a lumpectomy on 220. [place] lymph node was negative. Pathology revealed left breast lumpectomy invasive lobular carcinoma involving the posterior and anterior margins. The anterior margin was reexcised and negative for invasive malignancy however the posterior margin was felt to be on the chest wall and further resection cannot be done. The patient was recommended to undergo radiation therapy. She completed this on 03/10/2020. She did not have any chemotherapy but is receiving anastrozole. She was recently seen by radiation oncology and was noted to have an egg-sized circumflex seroma/soft tissue swelling at the area of the tumor bed. This extended from the chest wall and covered the outer lower quadrant of the left breast. She was sent back for further evaluation. The patient has not had any fever or chills. She states she did have some increased tenderness over the last week. In states she feels it has increased slightly in size. She was started on an antibiotic. Family history: Sr.: Stage III breast cancer Paternal grandmother: Breast cancer Surgical history: Hysterectomy took ovaries, done secondary to the fact the patient was on tamoxifen Cataracts surgery Tonsillectomy Left breast lumpectomy and sentinel node biopsy Medical history: Negative Social history: Smoking: Negative Alcohol: Negative Drugs: Negative Systems: Constitutional: Negative HEENT: Patient status post cataract surgery Breasts: As per HPI Cardiovascular: Negative Pulmonary: Sarcoidosis GI: Negative : Negative Musculoskeletal: Negative Psychiatric: Negative Endocrine: Negative Bleeding abnormalities: Negative ALLERGIES: Seasonal ALLERGIES Objective - Vital Signs Vital signs: Vital Signs Temp 98.1 F 06/15/20 08:46 Pulse 89 06/15/20 08:46 Resp 16 06/15/20 08:46 BP 162/95 06/15/20 08:46 Pulse Ox 97 06/15/20 08:46 Intake & Output 06/14/20 06/15/20 06/15/20 18:59 06:59 18:59 Weight 88.904 kg - Exam BMI 31.6 - Constitutional General appearance: Present: average body habitus - EENT Eyes: Present: EOMI ENT: Present: hearing grossly normal - Neck Neck: Present: normal ROM - Respiratory Respiratory: bilateral: CTA - Cardiovascular Rhythm: regular Heart sounds: normal: S1, S2 - Gastrointestinal General gastrointestinal: Present: soft - Integumentary Integumentary: Present: normal turgor - Musculoskeletal Musculoskeletal: Present: gait normal - Psychiatric Psychiatric: Present: A&O x's 3, appropriate affect, intact judgment & insight - Additional findings Additional findings: Breast exam: BRA: 36C inspection: grade 2/3 ptosis right breast, grade 2 ptosis left breast, asymmetry of the breast related to prior left breast lumpectomy palpation: Right breast: Examination reveals fibrocystic changes, no dominant masses or nodules of concern Right axilla: No adenopathy of concern Left breast: Post radiation and surgical changes/seroma lower outer quadrant No other dominant masses or nodules of concern Left axilla: No adenopathy of concern Area of concern in the left breast is prepped using alcohol. One percent lidocaine was used to anesthetize the area of concern. An 18-gauge needle on a 20 mL syringe was used to aspirate the fluid. Approximately 45 mL of straw- colored fluid was removed with resolution of the seroma Assessment and Plan Assessment: Impression: 1. Patient has completed a course of radiation therapy for the left breast, this was an invasive lobular carcinoma positive posterior margin but dissection was down to the pectoralis muscle, the patient is presently on anastrozole no evidence of recurrent disease, she did develop a seroma at the lumpectomy site 2. Patient is going to have bilateral mammogram in August 2020 3. Patient is following with pulmonary with respect to sarcoidosis Plan: 1. Bilateral mammogram August 2020 with examination at that time 2. Continue anastrozole 3. Follow up sooner if any questions or concerns/including if she has recurrence of the seroma 4. Continue to follow with pulmonary regarding sarcoidosis CC: Mohan Payne [place] encounter 30 minutes
== END ==
LOC: WWCWWP 08:20
PROVIDERS: ATTEND Surgery
DX: L76.34 Postprocedural seroma of skin and subcutaneous tissue following other procedure (principal); Z98.890 Other specified postprocedural states

== ENCOUNTER → 2020-09-12 | Outpatient (CLI) | payer MEDICARE, OTHER ==
--- NOTE | 2020-09-12 08:08 | USB ---
EXAMINATION TYPE: US breast limited LT DATE OF EXAM: 09/12/2020 COMPARISON: Mammograms in the CLINICAL HISTORY: R92.8 abnormal mammogram. Findings: Targeted ultrasound was performed in the left breast at 3-4:00 and in the left axilla. In the left breast at 4:00 in the region of patient's palpable abnormality, there is a 5.8 x 1.9 x 3. 6 cm anechoic collection with posterior enhancement which corresponds well in size, location and morp hology to the asymmetry seen on mammogram and corresponds to the palpable abnormality. Findings are m ost consistent with a postoperative seroma. Clinical follow-up is recommended. IMPRESSION: Clinical follow-up is recommended for left breast seroma in the postoperative region at 4:00. Bilateral diagnostic mammogram is recommended in one year. BI-RADS 2, benign.
--- NOTE | 2020-09-14 13:46 | MM ---
Reason for exam: additional evaluation requested from prior study. Last mammogram was performed 9 months ago. History: Patient has history of breast cancer at age 69. Family history of breast cancer in sister at age 66 and breast cancer in paternal grandmother at age 59. Malignant US breast localization LT, December 21, 2019. Lumpectomy of the left breast, December 21, 2019. Malignant US biopsy breast VAD LT of the left breast, October 18, 2019. Taking antineoplastic beginning at age 69. Physical Findings: Nurse Summary: 4 x 2cm nodule in the left breast at 9 o'clock (nurse dw). MG 3D Diag Mammo W/Cad STERLING Bilateral CC and MLO view(s) were taken. Prior study comparison: December 21, 2019, left breast MG diagnostic mammo LT wo CAD. October 18, 2019, left breast MG diagnostic mammo LT wo CAD. There are scattered fibroglandular densities. Mass in the left upper outer quadrant associated with post operative changes corresponding to palpable abnormality. These results were verbally communicated with the patient and result sheet given to the patient on 09/12/20. ASSESSMENT: Incomplete: need additional imaging evaluation, BI-RAD 0 RECOMMENDATION: Ultrasound of the left breast. (palpable)
== END | disposition home or self-care (01) ==
LOC: RADMAMWWP 06:53
PROVIDERS: ATTEND Surgery
DX: N64.89 Other specified disorders of breast (principal); Z80.3 Family history of malignant neoplasm of breast; Z85.3 Personal history of malignant neoplasm of breast
CPT/HCPCS: 77066; 76642; G0279; 77062

== ENCOUNTER → 2020-09-14 | Outpatient (CLI) | payer BC ==
[2020-09-14 13:05] VITALS: BP 144/87; PULSE 91; RESP 18; TEMP 98
--- NOTE | 2020-09-14 13:13 | P.PN ---
Subjective Progress Note Date: 09/14/20 Principal diagnosis: left breast cancer surveillance Left breast invasive lobular carcinoma stage IA Jayna is a 70-year-old white female diagnosed with left breast invasive lobular carcinoma. 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 She did not have any chemotherapy or radiation therapy. She actually started tamoxifen in 2003. In July 2019 she underwent a bilateral mammogram. This revealed an area of concern in the left breast for which an ultrasound was performed. This subsequently led to a bilateral breast MRI and a biopsy which revealed invasive lobular carcinoma. Additionally she was diagnosed with sarcoidosis. The patient subsequently underwent a lumpectomy on . [place] lymph node was negative. Pathology revealed left breast lumpectomy invasive lobular carcinoma involving the posterior and anterior margins. The anterior margin was reexcised and negative for invasive malignancy however the posterior margin was felt to be on the chest wall and further resection cannot be done. The patient was recommended to undergo radiation therapy. She completed this on 03/10/2020. She did not have any chemotherapy but is receiving anastrozole. Her last visit in May 2020 and a seroma was aspirated. 45 mL of straw- colored fluid was removed with resolution of the seroma but indentation of the area of the breast. This has recurred. She had a bilateral mammogram and left breast ultrasound performed and 08/1520. Mammogram results are not yet available however the ultrasound reveals a 5.8 x 3.6 cm fluid collection consistent with a seroma. The recommendation is bilateral diagnostic mammogram in one year. Family history: Sr.: Stage III breast cancer Paternal grandmother: Breast cancer Surgical history: Hysterectomy took ovaries, done secondary to the fact the patient was on tamoxifen Cataracts surgery Tonsillectomy Left breast lumpectomy and sentinel node biopsy Medical history: sarcoidosis Social history: Smoking: Negative Alcohol: Negative Drugs: Negative Systems: Constitutional: Negative HEENT: Patient status post cataract surgery Breasts: As per HPI Cardiovascular: Negative Pulmonary: Sarcoidosis GI: Negative : Negative Musculoskeletal: Negative Psychiatric: Negative Endocrine: Negative Bleeding abnormalities: Negative ALLERGIES: Seasonal ALLERGIES Objective - Vital Signs Vital signs: Intake & Output 09/13/20 09/14/20 09/14/20 18:59 06:59 18:59 Weight 87.543 kg - Constitutional General appearance: Present: average body habitus - EENT Eyes: Present: EOMI ENT: Present: hearing grossly normal - Neck Neck: Present: normal ROM - Respiratory Respiratory: bilateral: CTA - Cardiovascular Rhythm: regular Heart sounds: normal: S1, S2 - Gastrointestinal General gastrointestinal: Present: soft - Integumentary Integumentary: Present: normal turgor - Musculoskeletal Musculoskeletal: Present: gait normal - Psychiatric Psychiatric: Present: A&O x's 3, appropriate affect, intact judgment & insight - Additional findings Additional findings: Breast examination: Bra: 36C Right breast: Multiple positional exam no dominant masses or nodules of concern, fibrocystic changes Right axilla: No adenopathy of concern Left breast: Seroma site is engorged again otherwise postsurgical and radiation changes but no dominant masses or nodules of concern Left axilla: No adenopathy of concern Assessment and Plan Assessment: Impression: 1. sarcoid in remission 2. left breast invasive lobular cancer treated with lumpectomy and anestrazole therapy 3. Recurrent seroma left breast Plan: 1. Awaiting results of recent bilateral mammogram 2. Results of ultrasound reviewed 3. Aspiration of seroma CC: Dr. Preston
--- NOTE | 2020-09-14 13:18 | P.PCN ---
Date of Procedure: 09/14/20 Preoperative Diagnosis: Seroma left breast Postoperative Diagnosis: Same Procedure(s) Performed: Aspiration of seroma Surgeon: Rosemary Ricadro Pathology: none sent Condition: stable Disposition: same day Indications for Procedure: enlarged seroma left breast Operative Findings: 20 mL of straw-colored fluid Description of Procedure: The area of concern in the left breast is prepped using alcohol. An 18-gauge needle on a 20 mL syringe was inserted into the area of concern. 20 mL of straw-colored fluid was obtained. There was resolution of the seroma. No additional fluid was obtained. Patient tolerated the procedure in stable condition. This fluid was not sent for cytology.
== END ==
LOC: WWCWWP 12:44
PROVIDERS: ATTEND Surgery
DX: D86.9 Sarcoidosis, unspecified (principal); L76.34 Postprocedural seroma of skin and subcutaneous tissue following other procedure; Z98.890 Other specified postprocedural states; Z85.3 Personal history of malignant neoplasm of breast; Z88.5 Allergy status to narcotic agent

== ENCOUNTER → 2020-09-20 | Outpatient (CLI) | payer MEDICARE, OTHER ==
--- NOTE | 2020-09-21 09:49 | BD ---
EXAMINATION TYPE: Axial Bone Density DATE OF EXAM: 09/20/2020 COMPARISON: NONE CLINICAL HISTORY: Height: 65 Weight: 193.3 FRAX RISK QUESTIONS: Alcohol (3 or more units per day): no Family History (Parent hip fracture): no Glucocorticoids (More than 3mos): no (Ex: prednisone, prednisolone, methylprednisolone, dexamethasone, and hydrocortisone). History of Fracture in Adulthood: no Secondary Osteoporosis: 1. Type 1 Diabetes: no 2. Hyperthyroidism: no 3. Menopause before 45: no 4. Malnutrition: no 5. Chronic liver disease: no Rheumatoid Arthritis: no Current Tobacco Use: no RISK FACTORS HISTORY OF: Surgery to Spine/Hip(right/left)/Wrist (right/left): no Family History of Osteoporosis: no Active: sometimes Diet low in dairy products/other sources of calcium: yes Postmenopausal woman: age 51 Lost more than 2 inches in height since high school: just two inches MEDICATIONS: lisinopril, pantoprazole, anastrazole Additional History: EXAM MEASUREMENTS: Bone mineral densitometry was performed using the [employer] System. Bone mineral density as measured about the Lumbar spine is: ----- L1-L4(G/cm2): 0.967 T Score Values are as follows: ----- L2: -2.1 ----- L3: -1.5 ----- L4: -2.1 ----- L1-L4: -1.8 Bone mineral density : baseline 0.851 Bone mineral density about the R hip (g/cm2): 0.851 Bone mineral density about the L hip (g/cm2): 0.863 T Score values are as follows: -----R Neck: -1.3 -----L Neck: -1.3 -----R Total: -1.3 -----L Total: -0.5 Bone mineral density : baseline IMPRESSION: Osteopenia. NOTE: T-SCORE=SD OF THE YOUNG ADULT MEAN.
== END | disposition home or self-care (01) ==
LOC: RADBDWWP 14:47
PROVIDERS: ATTEND Internal Medicine Hematology & Oncology
DX: Z13.820 Encounter for screening for osteoporosis (principal); M85.89 Other specified disorders of bone density and structure, multiple sites; Z78.0 Asymptomatic menopausal state
CPT/HCPCS: 77080

== ENCOUNTER → 2021-01-11 | Outpatient (CLI) | payer BC, MEDICARE ==
[2021-01-11 13:22] VITALS: BP 156/82; PULSE 77; RESP 14; TEMP 97.8
--- NOTE | 2021-01-11 14:01 | P.PN ---
Subjective Progress Note Date: 01/11/21 Principal diagnosis: Left breast invasive lobular carcinoma stage IA left breast cancer surveillance Left breast invasive lobular carcinoma stage IA [id number]- Jayna is a 70-year-old white female diagnosed with left breast invasive lobular carcinoma. 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 She did not have any chemotherapy or radiation therapy. She actually started tamoxifen in 2003. In July 2019 she underwent a bilateral mammogram. This revealed an area of concern in the left breast for which an ultrasound was performed. This subsequently led to a bilateral breast MRI and a biopsy which revealed invasive lobular carcinoma. Additionally she was diagnosed with sarcoidosis. The patient subsequently underwent a lumpectomy on . [place] lymph node was negative. Pathology revealed left breast lumpectomy invasive lobular carcinoma involving the posterior and anterior margins. The anterior margin was reexcised and negative for invasive malignancy however the posterior margin was felt to be on the chest wall and further resection cannot be done. The patient was recommended to undergo radiation therapy. She completed this on 03/10/2020. She did not have any chemotherapy but is receiving anastrozole. On her visit of May 2020 a seroma was aspirated. 45 mL of straw- colored fluid was removed with resolution of the seroma but indentation of the area of the breast. The seroma recurred. She had a bilateral mammogram and left breast ultrasound performed and . The ultrasound reveals a 5.8 x 3.6 cm fluid collection consistent with a seroma. The recommendation was bilateral diagnostic mammogram in one year. Note from Dr. Kate radiation oncology of 12-14-20 reviewed. The fullness in her left breast has decreased in size. Family history: Sister: Stage III breast cancer Paternal grandmother: Breast cancer Surgical history: Hysterectomy took ovaries, done secondary to the fact the patient was on tamoxifen Cataracts surgery Tonsillectomy Left breast lumpectomy and sentinel node biopsy Medical history: sarcoidosis Social history: Smoking: Negative Alcohol: Negative Drugs: Negative Systems: Constitutional: Negative HEENT: Patient status post cataract surgery Breasts: As per HPI Cardiovascular: Negative Pulmonary: Sarcoidosis GI: Negative : Negative Musculoskeletal: Negative Psychiatric: Negative Endocrine: Negative Bleeding abnormalities: Negative ALLERGIES: Seasonal ALLERGIES Objective - Vital Signs Vital signs: Vital Signs Temp 97.8 F 10/14/21 13:11 Pulse 77 01/11/21 13:11 Resp 14 01/11/21 13:11 BP 156/82 01/11/21 13:11 Pulse Ox 98 01/11/21 13:11 Intake & Output 01/10/21 01/11/21 01/11/21 18:59 06:59 18:59 Weight 84.822 kg - Constitutional General appearance: Present: cooperative - EENT Eyes: Present: EOMI - Neck Neck: Present: normal ROM - Respiratory Respiratory: bilateral: CTA - Cardiovascular Rhythm: regular Heart sounds: normal: S1, S2 - Gastrointestinal General gastrointestinal: Present: soft - Integumentary Integumentary: Present: normal turgor - Musculoskeletal Musculoskeletal: Present: gait normal - Psychiatric Psychiatric: Present: A&O x's 3, appropriate affect, intact judgment & insight - Additional findings Additional findings: Breast Exam: BRA: 36C inspection: Postop and radiation changes left breast, bilateral grade 2/3 ptosis Palpation: Right breast: Multi-positional exam no dominant masses or nodules of concern Right axilla: No adenopathy of concern Left breast: Multiple positional exam post radiation and surgical changes no dominant masses or nodules of concern Left axilla: No adenopathy of concern Assessment and Plan Assessment: Impression: 1. Patient status post left breast lumpectomy/sentinel node biopsy/radiation therapy for stage IA invasive lobular carcinoma, posterior margin was positive but this was on the chest wall so no further excision was performed 2. Patient presently on Anestrazole/ does have some joint pain 3. seroma stabel slightly smaller left breast Plan: 1. Repeat bilateral mammogram in July 2020 2. appointment in 6 months CC: Dr. Preston
== END ==
LOC: WWCWWP 13:08
PROVIDERS: ATTEND Surgery
DX: C50.912 Malignant neoplasm of unspecified site of left female breast (principal); N64.89 Other specified disorders of breast; L76.34 Postprocedural seroma of skin and subcutaneous tissue following other procedure; Z79.811 Long term (current) use of aromatase inhibitors; Z92.3 Personal history of irradiation; Z80.3 Family history of malignant neoplasm of breast; Z88.5 Allergy status to narcotic agent

== ENCOUNTER → 2021-06-28 | Outpatient (CLI) | payer MEDICARE, OTHER ==
[2021-06-28 12:28] VITALS: BP 173/94; PULSE 93; RESP 16; TEMP 97.6
--- NOTE | 2021-06-28 12:44 | P.PN ---
Subjective Progress Note Date: 06/28/21 Principal diagnosis: left breast invasive lobular cancer stage IA Left breast invasive lobular carcinoma stage IA left breast cancer surveillance Left breast invasive lobular carcinoma stage IA [id number]- Jayna is a 70-year-old white female diagnosed with left breast invasive lobular carcinoma. 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 She did not have any chemotherapy or radiation therapy. She actually started tamoxifen in 2003. In July 2019 she underwent a bilateral mammogram. This revealed an area of concern in the left breast for which an ultrasound was performed. This subsequently led to a bilateral breast MRI and a biopsy which revealed invasive lobular carcinoma. Additionally she was diagnosed with sarcoidosis. The patient subsequently underwent a lumpectomy on . [place] lymph node was negative. Pathology revealed left breast lumpectomy invasive lobular carcinoma involving the posterior and anterior margins. The anterior margin was reexcised and negative for invasive malignancy however the posterior margin was felt to be on the chest wall and further resection cannot be done. The patient was recommended to undergo radiation therapy. She completed this on 03/10/2020. She did not have any chemotherapy but is receiving anastrozole. On her visit of May 2020 a seroma was aspirated. 45 mL of straw- colored fluid was removed with resolution of the seroma but indentation of the area of the breast. The seroma recurred. She had a bilateral mammogram and left breast ultrasound performed and . The ultrasound reveals a 5.8 x 3.6 cm fluid collection consistent with a seroma. The recommendation was bilateral diagnostic mammogram in one year. Note from Dr. Kate radiation oncology of 12-14-20 reviewed. The fullness in her left breast has decreased in size. 06-28-[address] Ford reviewed Patient states June 05 she noted redness around the nipple on the left breast, She started applying NovoDalin cream which is a B17 product. The area improved. She is not having new lumps or masses of concern. She continues to take anastrozole without difficulty. She completed her radiation therapy on [id number]. Family history: Sister: Stage III breast cancer Paternal grandmother: Breast cancer Surgical history: Hysterectomy took ovaries, done secondary to the fact the patient was on tamoxif en Cataracts surgery Tonsillectomy Left breast lumpectomy and sentinel node biopsy Medical history: sarcoidosis Social history: Smoking: Negative Alcohol: Negative Drugs: Negative Systems: Constitutional: Negative HEENT: Patient status post cataract surgery Breasts: As per HPI Cardiovascular: Negative Pulmonary: Sarcoidosis GI: Negative : Negative Musculoskeletal: Negative Psychiatric: Negative Endocrine: Negative Bleeding abnormalities: Negative ALLERGIES: Seasonal ALLERGIES Objective - Vital Signs Vital signs: Vital Signs Temp 97.6 F 06/28/21 12:23 Pulse 93 06/28/21 12:23 Resp 16 06/28/21 12:23 BP 173/94 06/28/21 12:23 Pulse Ox 99 06/28/21 12:23 Intake & Output 06/27/21 06/28/21 06/28/21 18:59 06:59 18:59 Weight 83.461 kg - Exam BMI 28.8 - Constitutional General appearance: Present: cooperative - EENT Eyes: Present: EOMI ENT: Present: hearing grossly normal - Neck Neck: Present: normal ROM - Respiratory Respiratory: bilateral: CTA - Cardiovascular Rhythm: regular Heart sounds: normal: S1, S2 - Integumentary Integumentary Comment(s): Mild erythema superior aspect of the left nipple areolar complex at 12:00 no evident active infection - Musculoskeletal Musculoskeletal: Present: gait normal - Psychiatric Psychiatric: Present: A&O x's 3, appropriate affect, intact judgment & insight - Additional findings Additional findings: Breast Exam: BRA: 36C inspection: Mild erythema superior nipple areolar complex left breast at 12:00, postoperative and postradiation changes left breast Palpation: Right breast: Multiple positional exam no dominant masses or nodules of concern right axilla: No adenopathy of concern Left breast: Multi-positional exam postop and postradiation changes fullness in the lower outer quadrant believed to be related to postsurgical changes Left axilla: No adenopathy of concern Assessment and Plan Assessment: Impression: Sarcoidosis left breast [id number]; positive posterior margin which was on the pectoralis muscle treated with radiation therapy New-onset erythema superior to areolar complex left breast Plan: Bilateral mammogram with left breast ultrasound as well at this time Punch biopsy area of erythema following radiographic studies CC: Dr. Childress
== END ==
LOC: WWCWWP 12:00
PROVIDERS: ATTEND Surgery
DX: C50.912 Malignant neoplasm of unspecified site of left female breast (principal); D86.9 Sarcoidosis, unspecified; Z17.0 Estrogen receptor positive status [ER+]; Z92.3 Personal history of irradiation; Z98.890 Other specified postprocedural states; Z88.5 Allergy status to narcotic agent

== ENCOUNTER → 2021-07-04 | Outpatient (CLI) | payer MEDICARE, OTHER ==
--- NOTE | 2021-07-04 11:44 | USB ---
EXAMINATION TYPE: US breast limited LT DATE OF EXAM: 07/04/2021 COMPARISON: None INDICATION: Short of breath, cough, fever TECHNIQUE: Frontal and lateral views of the chest are obtained. FINDINGS: The heart size is normal. The pulmonary vasculature is normal. The lungs are clear. IMPRESSION: 1. No acute pulmonary process.
--- NOTE | 2021-07-04 12:05 | MM ---
Reason for exam: follow-up at short interval from prior study. Last mammogram was performed 10 months ago. History: Patient is postmenopausal and has history of breast cancer at age 69. Family history of breast cancer in sister at age 66 and breast cancer in paternal grandmother at age 59. Malignant US breast localization LT, December 21, 2019. Lumpectomy of the left breast, December 21, 2019. Malignant US biopsy breast VAD LT of the left breast, October 18, 2019. Taking antineoplastic beginning at age 69. Physical Findings: A clinical breast exam by your physician is recommended on an annual basis and results should be correlated with mammographic findings. MG 3D Diag Mammo W/Cad STERLING Bilateral CC and MLO view(s) were taken. Prior study comparison: September 12, 2020, bilateral MG 3d diag mammo w/cad STER[place]ING. December 21, 2019, left breast MG diagnostic mammo LT wo CAD. There are scattered fibroglandular densities. Post surgical changes left breast. Prior seroma appears resolved. ASSESSMENT: Benign, BI-RAD 2 RECOMMENDATION: Follow-up diagnostic mammogram of both breasts in 1 year.
== END | disposition home or self-care (01) ==
LOC: RADMAMWWP 10:12
PROVIDERS: ATTEND Surgery
DX: R92.8 Other abnormal and inconclusive findings on diagnostic imaging of breast (principal); Z85.3 Personal history of malignant neoplasm of breast; Z78.0 Asymptomatic menopausal state; Z80.3 Family history of malignant neoplasm of breast
CPT/HCPCS: 77066; 76642; G0279; 77062

== ENCOUNTER → 2021-07-27 | Outpatient (CLI) | payer MEDICARE, OTHER ==
[2021-07-27 10:07] VITALS: BP 170/98; PULSE 71; RESP 17; TEMP 97.8
--- NOTE | 2021-07-27 10:35 | P.PCN ---
Date of Procedure: 07/27/21 Preoperative Diagnosis: Erythema and thickening of the skin in the 12:00 to medial aspect of the periareolar region left breast/left breast is been treated for lobular carcinoma stage IA Procedure: Punch biopsy After informed consent the area of concern in the left breast was prepped using Betadine One percent lidocaine was used to anesthetize the area of concern, a 3 mm punch biopsy was used to obtain the tissue. The tissue was sent for pathology. The biopsy site was closed using 3-0 nylon suture. The patient tolerated the procedure in stable condition. Patient has had a recent bilateral mammogram which was benign BIRADS 2 this was done on 4621 additionally an ultrasound was performed and recommendation is for repeat ultrasound in 6 months to follow seroma at lumpectomy site. Plan: Follow up next week for results of punch biopsy and suture removal Left breast ultrasound in 6 months Bilateral mammogram in 1 year Patient to follow up sooner any questions or concerns Continue to follow with Dr. Guevara regarding sarcoidosis Continue to follow with Dr. Wong regarding anastrozole Postoperative Diagnosis: same Procedure(s) Performed: punch biopsy left breast area of erythema Surgeon: Rosemary Ricardo Pathology: other (Punch biopsy of the skin and sent for pathology) Condition: stable Disposition: same day Indications for Procedure: Erythema thickening of the skin on the left breast Description of Procedure: Following informed consent the area of concern in the left breast was prepped using Betadine. A 3 mm punch biopsy was used to obtain a specimen after the area was anesthetized using 1% lidocaine. The patient tolerated procedure without difficulty. The incision was closed using a 3-0 nylon suture. Patient will follow up in 1 week specimen was sent to pathology.
== END ==
LOC: WWCWWP 09:58
PROVIDERS: ATTEND Surgery
DX: D86.9 Sarcoidosis, unspecified (principal); N64.89 Other specified disorders of breast; Z79.811 Long term (current) use of aromatase inhibitors; Z88.5 Allergy status to narcotic agent

== ENCOUNTER → 2021-08-02 | Outpatient (CLI) | payer MEDICARE, OTHER ==
[2021-08-02 11:25] VITALS: BP 169/87; PULSE 93; RESP 13; TEMP 98.1
--- NOTE | 2021-08-02 12:10 | P.PN ---
Progress Note - Text Progress Note Date: 08/02/21 Jayna is status post punch biopsy of hte left breast on 07-27-21. Pathology revealed superficial dermatitis. She has some mild erythema at the biopsy site. At this time we are not going to prescribe an antibiotic. She is going to follow up in the proximally week if the erythema does not resolve. Plan: Repeat left breast ultrasound in 6 months with physician exam at that time CC: Dr. Moses
== END ==
LOC: WWCWWP 11:09
PROVIDERS: ATTEND Surgery
DX: L76.82 Other postprocedural complications of skin and subcutaneous tissue (principal); Z88.5 Allergy status to narcotic agent

== ENCOUNTER → 2022-01-07 | Outpatient (CLI) | payer MEDICARE, OTHER ==
--- NOTE | 2022-01-07 10:36 | USB ---
Reason for Exam: Follow-up at short interval from prior study. Patient History: Menarche at age 14. First Full-Term at age 26. Left ovary removed at age 54. Right ovary removed at age 54. Hysterectomy at age 54. Postmenopausal. Breast cancer, age 69. 12/21/2019, Lumpectomy on the Left side. Malignant Core Biopsy. 10/18/2019, Malignant Core Biopsy on the left side. Paternal grandmother had breast cancer, age 59. Sister had breast cancer, age 66. Prior Study Comparison: 12/21/2019 Left Diagnostic Mammogram, [facility]. 09/12/2020 Bilateral Diagnostic Mammogram, [facility]. 07/04/2021 Bilateral Diagnostic Mammogram, [facility]. Findings: The lower outer quadrant of the left breast, the axilla of the left breast and the retroareolar of the left breast were scanned. A limited left breast ultrasound was obtained from 3-6 o'clock and evaluation of the retroareolar and axillary. Decrease in size and complexity of primarily anechoic lobulated fluid collection in the left breast at 4:00 5 cm from the nipple. There is adjacent scarring noted. No internal vascularity. The fluid collection measures 3.1 x 0.7 x 1.3 cm with thin septations identified. This is most consistent with a seroma. Overall Assessment: Benign, BI-RAD 2 Management: Screening Mammogram of both breasts in 6 months. A clinical breast exam by your physician is recommended on an annual basis and results should be correlated with mammographic findings. This exam should not preclude additional follow-up of suspicious palpable abnormalities. ??Results were given to the patient verbally at the time of exam. Electronically signed and approved by: Perry Rodrigues D.O.
== END | disposition home or self-care (01) ==
LOC: RADUSWWP 09:58
PROVIDERS: ATTEND Surgery
DX: R92.8 Other abnormal and inconclusive findings on diagnostic imaging of breast (principal); Z80.3 Family history of malignant neoplasm of breast; Z78.0 Asymptomatic menopausal state

== ENCOUNTER → 2022-01-10 | Outpatient (CLI) | payer MEDICARE, OTHER ==
[2022-01-10 15:44] VITALS: BP 160/88; PULSE 82; RESP 16; TEMP 97.9
--- NOTE | 2022-01-10 15:56 | P.PN ---
Subjective Progress Note Date: 01/10/22 Principal diagnosis: Left breast invasive lobular carcinoma stage IA Left breast invasive lobular carcinoma stage IA left breast cancer surveillance Left breast invasive lobular carcinoma stage IA [id number]+Her2- Jayna is a 71-year-old white female diagnosed with left breast invasive lobular carcinoma. 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 She did not have any chemotherapy or radiation therapy. She actually started tamoxifen in 2003. In July 2019 she underwent a bilateral mammogram. This revealed an area of concern in the left breast for which an ultrasound was performed. This subsequently led to a bilateral breast MRI and a biopsy which revealed invasive lobular carcinoma. Additionally she was diagnosed with sarcoidosis. The patient subsequently underwent a lumpectomy on . [place] lymph node was negative. Pathology revealed left breast lumpectomy invasive lobular carcinoma involving the posterior and anterior margins. The anterior margin was reexcised and negative for invasive malignancy however the posterior margin was felt to be on the chest wall and further resection cannot be done. The patient was recommended to undergo radiation therapy. She completed this on 03/10/2020. She did not have any chemotherapy but is receiving anastrozole. On her visit of May 2020 a seroma was aspirated. 45 mL of straw- colored fluid was removed with resolution of the seroma but indentation of the area of the breast. The seroma recurred. She had a bilateral mammogram and left breast ultrasound performed and . The ultrasound reveals a 5.8 x 3.6 cm fluid collection consistent with a seroma. The recommendation was bilateral diagnostic mammogram in one year. Note from Dr. Kate radiation oncology of 12-14-20 reviewed. The fullness in her left breast has decreased in size. 06-28-[address] Ford reviewed Patient states June 05 she noted redness around the nipple on the left breast, She started applying NovoDalin cream which is a B17 product. The area improved. She is not having new lumps or masses of concern. She continues to take anastrozole without difficulty. She completed her radiation therapy on [id number]. 01-10-22 Note radiation oncology 12-13-21 reviewed; Dr. Sims. She had an ultrasound left breast of 01-07-22 which revealed a seroma 3.1 by 1.3 cm in size. A complain of any new lumps masses or nodules of concern in either breast. Her last bilateral mammogram was stated [id number] this was benign BIRADS 2. Family history: Sister: Stage III breast cancer Paternal grandmother: Breast cancer Surgical history: Hysterectomy took ovaries, done secondary to the fact the patient was on tamoxifen Cataracts surgery Tonsillectomy Left breast lumpectomy and sentinel node biopsy Medical history: sarcoidosis Social history: Smoking: Negative Alcohol: Negative Drugs: Negative Systems: Constitutional: Negative HEENT: Patient status post cataract surgery Breasts: As per HPI Cardiovascular: Negative Pulmonary: Sarcoidosis GI: Negative : Negative Musculoskeletal: Negative Psychiatric: Negative Endocrine: Negative Bleeding abnormalities: Negative ALLERGIES: Seasonal ALLERGIES Objective - Constitutional General appearance: Present: cooperative - EENT Eyes: Present: EOMI ENT: Present: hearing grossly normal - Neck Neck: Present: normal ROM - Respiratory Respiratory: bilateral: CTA - Cardiovascular Rhythm: regular Heart sounds: normal: S1, S2 - Integumentary Integumentary: Present: normal turgor - Musculoskeletal Musculoskeletal: Present: gait normal - Psychiatric Psychiatric: Present: A&O x's 3, appropriate affect, intact judgment & insight - Additional findings Additional findings: Breast Exam: BRA: 36C inspection: left breast smaller than right breast post radiation and surgical changes Palpation: Right breast: Multiple positional exam no dominant masses or nodules of concern right axilla: No adenopathy of concern Left breast: Multi-positional exam postop and postradiation changes fullness in the lower outer quadrant believed to be related to postsurgical changes Left axilla: No adenopathy of concern Assessment and Plan Assessment: Assessment and Plan Assessment: Impression: Sarcoidosis left breast [id number]-G1; positive posterior margin which was on the pectoralis muscle treated with radiation therapy Ultrasound of the left breast performed on [id number] felt to be highly attached to Plan: Bilateral mammogram June 2022 Patient follow-up sooner any questions or concerns Continue to follow with medical and radiation oncology CC: Dr. Childress
== END ==
LOC: WWCWWP 15:32
PROVIDERS: ATTEND Surgery
DX: C50.912 Malignant neoplasm of unspecified site of left female breast (principal); D86.9 Sarcoidosis, unspecified; Z88.5 Allergy status to narcotic agent; Z92.3 Personal history of irradiation

== ENCOUNTER → 2022-07-05 | Outpatient (CLI) | payer MEDICARE, OTHER ==
[2022-07-05 13:46] VITALS: BP 144/85; PULSE 77; RESP 18; TEMP 97.7
== END ==
LOC: WWCWWP 12:57
PROVIDERS: ATTEND Surgery
DX: Z85.3 Personal history of malignant neoplasm of breast (principal); Z88.5 Allergy status to narcotic agent

== ENCOUNTER → 2022-07-05 | Outpatient (CLI) | payer MEDICARE, OTHER ==
--- NOTE | 2022-07-05 13:31 | MM ---
Reason for Exam: Additional evaluation requested from prior study. Last screening mammogram was performed 12 month(s) ago. Patient History: Menarche at age 14. First Full-Term at age 26. Left ovary removed at age 54. Right ovary removed at age 54. Hysterectomy at age 54. Postmenopausal. Breast cancer, left, age 69. 12/21/2019, Lumpectomy on the Left side. Malignant Core Biopsy. 10/18/2019, Malignant Core Biopsy on the left side. Paternal grandmother had breast cancer, age 59. Sister had breast cancer, age 66. Tissue Density: The breast tissue is heterogeneously dense. This may lower the sensitivity of mammography. Findings: Analyzed By CAD. Architectural distortion with postsurgical changes of the left breast redemonstrated and appears similar. No suspicious mass or calcifications in either breast. Benign-appearing calcifications redemonstrated within both breasts. Overall Assessment: Benign, BI-RAD 2 Management: Diagnostic Mammogram of both breasts in 1 year. A clinical breast exam by your physician is recommended on an annual basis and results should be correlated with mammographic findings. This exam should not preclude additional follow-up of suspicious palpable abnormalities. Results were given to the patient verbally at the time of exam. Electronically signed and approved by: Perry Rodrigues D.O.
--- NOTE | 2022-07-05 14:09 | P.PN ---
Subjective Progress Note Date: 07/05/22 Principal diagnosis: Left breast invasive lobular carcinoma stage IA [id number]- left breast cancer surveillance Left breast invasive lobular carcinoma stage IA [id number]+Pr+Her2- Jayna is a 71-year-old white female diagnosed with left breast invasive lobular carcinoma. 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 She did not have any chemotherapy or radiation therapy. She actually started tamoxifen in 2003. In July 2019 she underwent a bilateral mammogram. This revealed an area of concern in the left breast for which an ultrasound was performed. This subse quently led to a bilateral breast MRI and a biopsy which revealed invasive lobular carcinoma. Additionally she was diagnosed with sarcoidosis. The patient subsequently underwent a lumpectomy on . [place] lymph node was negative. Pathology revealed left breast lumpectomy invasive lobular carcinoma involving the posterior and anterior margins. The anterior margin was reexcised and negative for invasive malignancy however the posterior margin was felt to be on the chest wall and further resection cannot be done. The patient was recommended to undergo radiation therapy. She completed this on 03/10/2020. She did not have any chemotherapy but is receiving anastrozole. On her visit of May 2020 a seroma was aspirated. 45 mL of straw- colored fluid was removed with resolution of the seroma but indentation of the area of the breast. The seroma recurred. She had a bilateral mammogram and left breast ultrasound performed on . The ultrasound revealed a 5.8 x 3.6 cm fluid collection consistent with a seroma. The recommendation was bilateral diagnostic mammogram in one year. Note from Dr. Kate radiation oncology of 12-14-20 reviewed. The fullness in her left breast has decreased in size. 06-28-[address] Ford reviewed Patient states June 05 she noted redness around the nipple on the left breast, She started applying NovoDalin cream which is a B17 product. The area improved. She is not having new lumps or masses of concern. She continues to take anastrozole without difficulty. She completed her radiation therapy on [id number]. 01-10-22 Note radiation oncology 12-13-21 reviewed; Dr. Sims. She had an ultrasound left breast of 01-07-22 which revealed a seroma 3.1 by 1.3 cm in size. No complaints of any new lumps masses or nodules of concern in either breast. Her last bilateral mammogram was stated 46 this was benign BIRADS 2. 07-05-22 Bilateral mammogram on 07-05-22, BIRAD 2. No complaints of any new lumps, masses, or nodules. Continues on anastrozole without difficulty. Family history: Sister: Stage III breast cancer Paternal grandmother: Breast cancer Surgical history: Hysterectomy took ovaries, done secondary to the fact the patient was on tamoxifen Cataracts surgery Tonsillectomy Left breast lumpectomy and sentinel node biopsy Medical history: sarcoidosis Social history: Smoking: Negative Alcohol: Negative Drugs: Negative Systems: Constitutional: Negative HEENT: Patient status post cataract surgery Breasts: As per HPI Cardiovascular: Negative Pulmonary: Sarcoidosis GI: Negative : Negative Musculoskeletal: Negative Psychiatric: Negative Endocrine: Negative Bleeding abnormalities: Negative ALLERGIES: Seasonal ALLERGIES Objective - Constitutional General appearance: Present: cooperative - EENT Eyes: Present: EOMI ENT: Present: hearing grossly normal - Neck Neck: Present: normal ROM - Respiratory Respiratory: bilateral: CTA - Cardiovascular Rhythm: regular Heart sounds: normal: S1, S2 - Gastrointestinal General gastrointestinal: Present: soft - Integumentary Integumentary: Present: normal turgor - Musculoskeletal Musculoskeletal: Present: gait normal - Psychiatric Psychiatric: Present: A&O x's 3, appropriate affect, intact judgment & insight - Additional findings Additional findings: Breast Exam: BRA: 36C inspection: left breast smaller than right breast post radiation and surgical changes Palpation: Right breast: Multi-positional exam no dominant masses or nodules of concern right axilla: No adenopathy of concern Left breast: Multi-positional exam postop and postradiation changes fullness in the lower outer quadrant believed to be related to postsurgical changes Left axilla: No adenopathy of concern Assessment and Plan Assessment: Impression: Sarcoidosis left breast [id number]-G1; positive posterior margin which was on the pectoralis muscle treated with radiation therapy bilateral mammogram 07-05-22 BIRAD 2 Plan: Bilateral mammogram June 2022 birad 2 follow up in 6 months Continue to follow with medical and radiation oncology CC: Dr. Childress
== END | disposition home or self-care (01) ==
LOC: RADMAMWWP 12:58
PROVIDERS: ATTEND Surgery
DX: R92.8 Other abnormal and inconclusive findings on diagnostic imaging of breast (principal); Z85.3 Personal history of malignant neoplasm of breast; Z78.0 Asymptomatic menopausal state; Z80.3 Family history of malignant neoplasm of breast
CPT/HCPCS: 77066; G0279; 77062

== ENCOUNTER → 2022-09-23 | Outpatient (CLI) | payer MEDICARE, OTHER ==
--- NOTE | 2022-09-23 11:49 | BD ---
EXAMINATION TYPE: Axial Bone Density DATE OF EXAM: 09/23/2022 CLINICAL HISTORY: 72 years old Female. ICD-10 CODE: Z79.890 POST MENOPAUSAL Height: 191lb Weight: 64.5in FRAX RISK QUESTIONS: Secondary Osteoporosis: RISK FACTORS HISTORY OF: Active: yes Postmenopausal woman: yes Lost more than 2 inches in height since high school: yes MEDICATIONS: Osteoporosis Medications: Which medication: Fosamax How Long: about 2 years Additional Medications: anastrazole, calcium with vitamin d Additional History: history of breast cancer EXAM MEASUREMENTS: Bone mineral densitometry was performed using the Crossfader System. Bone mineral density as measured about the Lumbar spine is: ----- L1-L4(G/cm2): 0.962 T Score Values are as follows: ----- L1: -2.0 ----- L2: -1.3 ----- L3: -1.7 ----- L4: -2.5 ----- L1-L4: -1.8 Z Score Values are as follows: ----- L1: -1.0 ----- L2: -0.3 ----- L3: -0.8 ----- L4: -1.5 ----- L1-L4: -0.8 Bone mineral density has: Decreased -0.5% since study of: 09-20-20 Bone mineral density about the R hip (g/cm2): 0.885 Bone mineral density about the L hip (g/cm2): 0.919 T Score values are as follows: -----R Neck: -1.6 -----L Neck: -1.2 -----R Total: -1.0 -----L Total: -0.7 Z Score values are as follows: -----R Neck: -0.3 -----L Neck: 0.1 -----R Total: 0.1 -----L Total: 0.3 Bone mineral density has: Increased 0.4% since study of: 09-20-20 FRAX%s: The graph provided illustrates a 10.1% chance for a major osteoporotic fx and a 1.6% chance f or the hips probability for fx in 10 years time. IMPRESSION: Osteopenia (T Score between -2.5 and -1). There is slightly increased risk of fracture and the patient may be considered for treatment. Re-Screen 2-5 years. NOTE: T-SCORE=SD OF THE YOUNG ADULT MEAN.
[2022-09-23 11:59] LABS: Basophils % (A) 0 %; Eosinophils # (A) 0.1 k/uL (0-0.7); Eosinophils % (A) 3 %; HGB 13.9 gm/dL (11.4-16.0); Lymphocytes # (A) 1.3 k/uL (1.0-4.8); Lymphocytes % (A) 28 %; MCHC 33.1 g/dL (31.0-37.0); MCV 90.7 fL (80.0-100.0); Monocytes # (A) 0.3 k/uL (0-1.0); Monocytes % (A) 6 %; Neutrophils # (A) 2.7 k/uL (1.3-7.7); Neutrophils % (A) 59 %; Platelet Count 235 k/uL (150-450); RBC 4.63 m/uL (3.80-5.40); WBC 4.6 k/uL (3.8-10.6)
[2022-09-23 12:12] LABS: ALT 19 U/L (4-34); AST 28 U/L (14-36); African American GFR (CKD) 76 (>60 ml/min/1.73 sqM); Albumin 4.1 g/dL (3.5-5.0); Alkaline Phosphatase 72 U/L (38-126); Anion Gap 6 mmol/L; Blood Urea Nitrogen 14 mg/dL (7-17); Calcium 9.5 mg/dL (8.4-10.2); Carbon Dioxide 28 mmol/L (22-30); Chloride 103 mmol/L (98-107); Glucose 91 mg/dL (74-99); Non-African American GFR(CKD) 66 (>60 ml/min/1.73 sqM); Potassium 4.6 mmol/L (3.5-5.1); Sodium 137 mmol/L (137-145); Total Bilirubin 0.5 mg/dL (0.2-1.3)
== END | disposition home or self-care (01) ==
LOC: RADBDWWP 11:16
PROVIDERS: ATTEND Internal Medicine Hematology & Oncology
DX: C50.512 Malignant neoplasm of lower-outer quadrant of left female breast (principal); M85.89 Other specified disorders of bone density and structure, multiple sites; I10 Essential (primary) hypertension; Z79.890 Hormone replacement therapy; Z71.3 Dietary counseling and surveillance
CPT/HCPCS: 77080; 80053; 85025

== ENCOUNTER → 2023-01-09 | Outpatient (CLI) | payer MEDICARE, OTHER ==
[2023-01-09 11:22] VITALS: BP 172/84; PULSE 81; RESP 18; TEMP 98.1
--- NOTE | 2023-01-09 11:32 | P.PN ---
Subjective Progress Note Date: 01/09/23 Principal diagnosis: Surveillance left breast invasive lobular carcinoma stage 2A/1A diagnosed 2019 Left breast invasive lobular carcinoma stage IA [id number]+Pr+Her2-G1 Left breast invasive lobular carcinoma stage IA [id number]+Pr+Her2- Jayna is a 72-year-old white female diagnosed with left breast invasive lobular carcinoma. 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 She did not have any chemotherapy or radiation therapy. She actually started tamoxifen in 2003. In July 2019 she underwent a bilateral mammogram. This revealed an area of concern in the left breast for which an ultrasound was performed. This subsequently led to a bilateral breast MRI and a biopsy which revealed invasive lobular carcinoma. Additionally she was diagnosed with sarcoidosis. The pat ient subsequently underwent a lumpectomy on . [place] lymph node was negative. Pathology revealed left breast lumpectomy invasive lobular carcinoma involving the posterior and anterior margins. The anterior margin was reexcised and negative for invasive malignancy however the posterior margin was felt to be on the chest wall and further resection cannot be done. The patient was recomme nded to undergo radiation therapy. She completed this on 03/10/2020. She did not have any chemotherapy but is receiving anastrozole. On her visit of May 2020 a seroma was aspirated. 45 mL of straw- colored fluid was removed with resolution of the seroma but indentation of the area of the breast. The seroma recurred. She had a bilateral mammogram and left breast ultrasound performed on . The ultrasound revealed a 5.8 x 3.6 cm fluid collection consistent with a seroma. The recommendation was bilateral diagnostic mammogram in one year. Note radiation oncology 12-17-22 reviewed; Dr. Sims. He is not complaining of any new lumps masses or nodules of concern in either breast. She does have some mild discomfort at the lateral aspect of the left breast over the area of the scar. This has not changed since her surgery. Family history: Sister: Stage III breast cancer Paternal grandmother: Breast cancer Surgical history: Hysterectomy took ovaries, done secondary to the fact the patient was on tamoxifen Cataracts surgery Tonsillectomy Left breast lumpectomy and sentinel node biopsy Medical history: sarcoidosis Social history: Smoking: Negative Alcohol: Negative Drugs: Negative Systems: Constitutional: Negative HEENT: Patient status post cataract surgery Breasts: As per HPI Cardiovascular: Negative Pulmonary: Sarcoidosis GI: Negative : Negative Musculoskeletal: Negative Psychiatric: Negative Endocrine: Negative Bleeding abnormalities: Negative ALLERGIES: Seasonal ALLERGIES Objective - Vital Signs Vital signs: Vital Signs Temp 98.1 F 01/09/23 11:08 Pulse 81 01/09/23 11:08 Resp 18 01/09/23 11:08 BP 172/84 01/09/23 11:08 Pulse Ox 98 01/09/23 11:08 FiO2 Intake & Output 01/08/23 01/09/23 01/09/23 18:59 06:59 18:59 Weight 85.729 kg - Constitutional General appearance: Present: cooperative - EENT Eyes: Present: EOMI ENT: Present: hearing grossly normal - Neck Neck: Present: normal ROM - Respiratory Respiratory: bilateral: CTA - Cardiovascular Rhythm: regular Heart sounds: normal: S1, S2 - Gastrointestinal General gastrointestinal: Present: soft - Integumentary Integumentary: Present: normal turgor - Musculoskeletal Musculoskeletal: Present: gait normal - Psychiatric Psychiatric: Present: A&O x's 3, appropriate affect, intact judgment & insight - Additional findings Additional findings: Breast Exam: BRA: 36C inspection: left breast smaller than right breast post radiation and surgical changes Palpation: Right breast: Multi-positional exam no dominant masses or nodules of concern right axilla: No adenopathy of concern Left breast: Multi-positional exam postop and postradiation changes fullness in the lower outer quadrant believed to be related to postsurgical changes Left axilla: No adenopathy of concern Assessment and Plan Assessment: Impression: Sarcoidosis left breast [id number]+Her2-G1; positive posterior margin which was on the pectoralis muscle treated with radiation therapy bilateral mammogram 07-05-22 BIRAD 2 The patient is presently on anastrozole Plan: Bilateral mammogram June 2022 BIRAD 2, bilateral mammogram in follow up after mammogram Continue to follow with medical and radiation oncology CC: Dr. Childress
== END ==
LOC: WWCWWP 10:40
PROVIDERS: ATTEND Surgery
DX: C50.912 Malignant neoplasm of unspecified site of left female breast (principal); D86.9 Sarcoidosis, unspecified; Z79.811 Long term (current) use of aromatase inhibitors; Z80.3 Family history of malignant neoplasm of breast; Z92.3 Personal history of irradiation; Z17.0 Estrogen receptor positive status [ER+]; Z85.3 Personal history of malignant neoplasm of breast; Z88.5 Allergy status to narcotic agent

== ENCOUNTER → 2023-07-08 | Outpatient (CLI) | payer MEDICARE, OTHER ==
--- NOTE | 2023-07-08 09:23 | MM ---
Reason for Exam: Follow-up at short interval from prior study. Last screening mammogram was performed 12 month(s) ago. Patient History: Menarche at age 14. First Full-Term at age 26. Left ovary removed at age 54. Right ovary removed at age 54. Hysterectomy at age 54. Postmenopausal. Patient has history of breast feeding. Breast cancer, left, age 69. 12/21/2019, Lumpectomy on the Left side. Malignant Core Biopsy. 10/18/2019, Malignant Core Biopsy on the left side. Paternal grandmother had breast cancer, age 59. Sister had breast cancer, age 66. Prior Study Comparison: 09/12/2020 Left Diagnostic Ultrasound, [facility]. 07/04/2021 Bilateral Diagnostic Mammogram, [facility]. 07/04/2021 Left Diagnostic Ultrasound, [facility]. 01/07/2022 Left US breast limited LT, [facility]. 07/05/2022 Bilateral MG 3D diag mammo w/cad [place], [facility]. Tissue Density: The breasts are heterogeneously dense, which may obscure small masses. Findings: Analyzed By CAD. Stable postoperative changes of left-sided lumpectomy. No evidence for recurrent or residual mass. No suspicious calcifications within either breast. Recommend ultrasound right axilla as was done 6 months ago. Stable postoperative changes of left-sided lumpectomy. No evidence for recurrent or residual mass. No suspicious calcifications within either breast. Recommend ultrasound right axilla clinical symptoms. Manage clinically. Overall Assessment: Incomplete: need additional imaging evaluation, BI-RAD 0 Management: Diagnostic Breast Ultrasound of the right breast. . Results were given to the patient verbally at the time of exam. Patient should continue monthly self-breast exams. A clinical breast exam by your physician is recommended on an annual basis. This exam should not preclude additional follow-up of suspicious palpable abnormalities. Note on Laury scores and lifetime risk: 1. A Laury score greater than 3% is considered moderate risk. If this is the case, consider specialist referral to assess eligibility for a risk reducing agent. 2. If overall lifetime risk for the development of breast cancer is 20% or higher, the patient may qualify for future screening with alternating mammogram and breast MRI. Electronically signed and approved by: Eldon Lewis M.D. Radiologis
--- NOTE | 2023-07-08 11:54 | USB ---
Reason for Exam: Clinical finding. Patient History: Menarche at age 14. First Full-Term at age 26. Left ovary removed at age 54. Right ovary removed at age 54. Hysterectomy at age 54. Postmenopausal. Patient has history of breast feeding. Breast cancer, left, age 69. 12/21/2019, Lumpectomy on the Left side. Malignant Core Biopsy. 10/18/2019, Malignant Core Biopsy on the left side. Paternal grandmother had breast cancer, age 59. Sister had breast cancer, age 66. Prior Study Comparison: 09/12/2020 Bilateral Diagnostic Mammogram, [facility]. 07/04/2021 Bilateral Diagnostic Mammogram, [facility]. 07/05/2022 Bilateral MG 3D diag mammo w/cad [place], [facility]. Findings: The area of palpable concern of the right breast, the axilla of the right breast and the retroareolar of the right breast were scanned. No solid or cystic masses are identified. Manage clinically. Overall Assessment: Benign, BI-RAD 2 Management: Diagnostic Mammogram of both breasts in 1 year. A clinical breast exam by your physician is recommended on an annual basis and results should be correlated with mammographic findings. This exam should not preclude additional follow-up of suspicious palpable abnormalities. Results were given to the patient verbally at the time of exam. Electronically signed and approved by: Eldon Lewis M.D. Radiologis
== END | disposition home or self-care (01) ==
LOC: RADUSWWP 08:16
PROVIDERS: ATTEND Surgery
DX: N63.10 Unspecified lump in the right breast, unspecified quadrant (principal); Z78.0 Asymptomatic menopausal state; Z80.3 Family history of malignant neoplasm of breast
CPT/HCPCS: 77066; 76642; G0279; 77062

== ENCOUNTER → 2023-07-08 | Outpatient (CLI) | payer MEDICARE, OTHER | END | disposition home or self-care (01) | LOC: RADMAMWWP 08:30 | PROVIDERS: ATTEND Surgery | DX: Z53.9 Procedure and treatment not carried out, unspecified reason (principal) ==

== ENCOUNTER → 2023-07-11 | Outpatient (CLI) | payer MEDICARE, OTHER ==
--- NOTE | 2023-07-11 10:15 | P.PN ---
Subjective Progress Note Date: 07/11/23 07-11-23 Principal diagnosis: Left breast invasive lobular carcinoma stage IA [id number] Jayna is a 73-year-old white female diagnosed with left breast invasive lobular carcinoma. 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 She did not have any chemotherapy or radiation therapy. She actually started tamoxifen in 2003. In July 2019 she underwent a bilateral mammogram. This revealed an area of concern in the left breast for which an ultrasound was performed. This subsequently led to a bilateral breast MRI and a biopsy which revealed invasive lobular carcinoma. Additionally she was diagnosed with sarcoidosis. The patient subsequently underwent a lumpectomy on . [place] lymph node was negative. Pathology revealed left breast lumpectomy invasive lobular carcinoma involving the posterior and anterior margins. The anterior margin was reexcised and negative for invasive malignancy however the posterior margin was felt to be on the chest wall and further resection cannot be done. The patient was recommended to undergo radiation therapy. She completed this on 03/10/2020. She did not have any chemotherapy but is receiving anastrozole. On her visit of May 2020 a seroma was aspirated. 45 mL of straw- colored fluid was removed with resolution of the seroma but indentation of the area of the breast. The seroma recurred. She had a bilateral mammogram and left breast ultrasound performed on . The ultrasound revealed a 5.8 x 3.6 cm fluid collection consistent with a seroma. The recommendation was bilateral diagnostic mammogram in one year. Note radiation oncology 12-17-22 reviewed; Dr. Sims on her last visit She is not complaining of any new lumps masses or nodules of concern in either breast. She does have some mild discomfort at the lateral aspect of the left breast over the area of the scar. This has not changed since her surgery. Bilateral mammogram and right breast ultrasound on 07-08-23 BIRAD 2 She is not complaining of any new lumps masses or nodules of concern in either breast Her sarcoidoisis is stable Family history: Sister: Stage III breast cancer Paternal grandmother: Breast cancer Surgical history: Hysterectomy took ovaries, done secondary to the fact the patient was on tamoxifen Cataracts surgery Tonsillectomy Left breast lumpectomy and sentinel node biopsy Medical history: sarcoidosis Social history: Smoking: Negative Alcohol: Negative Drugs: Negative Systems: Constitutional: Negative HEENT: Patient status post cataract surgery Breasts: As per HPI Cardiovascular: Negative Pulmonary: Sarcoidosis GI: Negative : Negative Musculoskeletal: Negative Psychiatric: Negative Endocrine: Negative Bleeding abnormalities: Negative ALLERGIES: Seasonal ALLERGIES Objective - Constitutional General appearance: Present: cooperative - EENT Eyes: Present: EOMI ENT: Present: hearing grossly normal - Neck Neck: Present: normal ROM - Respiratory Respiratory: bilateral: CTA - Cardiovascular Heart sounds: normal: S1, S2 - Gastrointestinal General gastrointestinal: Present: soft - Integumentary Integumentary: Present: normal turgor - Musculoskeletal Musculoskeletal: Present: gait normal - Psychiatric Psychiatric: Present: A&O x's 3, appropriate affect, intact judgment & insight - Additional findings Additional findings: Breast Exam: BRA: 36C inspection: left breast smaller than right breast post radiation and surgical changes Palpation: Right breast: Multi-positional exam no dominant masses or nodules of concern right axilla: No adenopathy of concern Left breast: Multi-positional exam postop and postradiation changes fullness in the lower outer quadrant believed to be related to postsurgical changes Left axilla: No adenopathy of concern Assessment and Plan Assessment: Impression: Sarcoidosis left breast [id number]-G1; positive posterior margin which was on the pectoralis muscle treated with radiation therapy bilateral mammogram 07-08-23 BIRAD 0 lead to a right breast ultrasound 07-08-23 BIRAD 2 The patient is presently on anastrozole Plan: Bilateral mammogram June 2024 follow up after mammogram follow up in [address] Jesus for sarcoid Continue to follow with medical and radiation oncology CC: Dr. Childress
[2023-07-11 10:50] VITALS: BP 175/81; PULSE 86; RESP 17; TEMP 97.8
== END ==
LOC: WWCWWP 09:26
PROVIDERS: ATTEND Surgery
DX: R92.8 Other abnormal and inconclusive findings on diagnostic imaging of breast (principal); C50.912 Malignant neoplasm of unspecified site of left female breast; D86.9 Sarcoidosis, unspecified; Z80.3 Family history of malignant neoplasm of breast; Z92.3 Personal history of irradiation; Z17.0 Estrogen receptor positive status [ER+]; Z91.09 Other allergy status, other than to drugs and biological substances; Z88.5 Allergy status to narcotic agent

== ENCOUNTER → 2024-01-29 | Outpatient (CLI) | payer MEDICARE, OTHER ==
[2024-01-29 13:49] VITALS: BP 175/97; PULSE 79; RESP 17; TEMP 98
--- NOTE | 2024-01-29 13:59 | P.PN ---
Subjective Progress Note Date: 01/29/24 Principal diagnosis: Left breast invasive lobular carcinoma stage IA [id number] Principal diagnosis: Left breast invasive lobular carcinoma stage IA [id number]+Her2-2019 Jayna is a 73-year-old white female diagnosed with left breast invasive lobular carcinoma. 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 She did not have any chemotherapy or radiation therapy. She actually started tamoxifen in 2003. In July 2019 she underwent a bilateral mammogram. This revealed an area of concern in the left breast for which an ultrasound was performed. This subsequently led to a bilateral breast MRI and a biopsy which revealed invasive lobular carcinoma. Additionally she was diagnosed with sarcoidosis. The patient subsequently underwent a lumpectomy on . [place] lymph node was negative. Pathology revealed left breast lumpectomy invasive lobular carcinoma involving the posterior and anterior margins. The anterior margin was reexcised and negative for invasive malignancy however the posterior margin was felt to be on the chest wall and further resection cannot be done. The patient was recommended to undergo radiation therapy. She completed this on 03/10/2020. She did not have any chemotherapy but is receiving anastrozole. On her visit of May 2020 a seroma was aspirated. 45 mL of straw- colored fluid was removed with resolution of the seroma but indentation of the area of the breast. The seroma recurred. She had a bilateral mammogram and left breast ultrasound performed on . The ultrasound revealed a 5.8 x 3.6 cm fluid collection consistent with a seroma. The recommendation was bilateral diagnostic mammogram in one year. Note radiation oncology 12-17-22 reviewed; Dr. Sims on her last visit She is not complaining of any new lumps masses or nodules of concern in either breast. She does have some mild discomfort at the lateral aspect of the left breast over the area of the scar. This has not changed since her surgery. Bilateral mammogram and right breast ultrasound on 07-08-23 BIRAD 2 She is not complaining of any new lumps masses or nodules of concern in either breast Her sarcoidoisis is stable Family history: Sister: Stage III breast cancer Paternal grandmother: Breast cancer Surgical history: Hysterectomy took ovaries, done secondary to the fact the patient was on tamoxifen Cataracts surgery Tonsillectomy Left breast lumpectomy and sentinel node biopsy Medical history: sarcoidosis Social history: Smoking: Negative Alcohol: Negative Drugs: Negative Systems: Constitutional: Negative HEENT: Patient status post cataract surgery Breasts: As per HPI Cardiovascular: Negative Pulmonary: Sarcoidosis GI: Negative : Negative Musculoskeletal: Negative Psychiatric: Negative Endocrine: Negative Bleeding abnormalities: Negative ALLERGIES: Seasonal ALLERGIES Objective - Vital Signs Vital signs: Vital Signs Temp 98 F 01/29/24 13:46 Pulse 79 01/29/24 13:46 Resp 17 01/29/24 13:46 BP 175/97 01/29/24 13:46 Pulse Ox 97 01/29/24 13:46 FiO2 Intake & Output 01/28/24 01/29/24 01/29/24 18:59 06:59 18:59 Weight 84.822 kg - Constitutional General appearance: Present: cooperative - EENT Eyes: Present: EOMI ENT: Present: hearing grossly normal - Neck Neck: Present: normal ROM - Respiratory Respiratory: bilateral: CTA - Cardiovascular Rhythm: regular Heart sounds: normal: S1, S2 - Integumentary Integumentary: Present: normal turgor - Musculoskeletal Musculoskeletal: Present: gait normal - Psychiatric Psychiatric: Present: A&O x's 3, appropriate affect, intact judgment & insight - Additional findings Additional findings: Breast Exam: BRA: 36C inspection: left breast smaller than right breast post radiation and surgical changes Palpation: Right breast: Multi-positional exam no dominant masses or nodules of concern right axilla: No adenopathy of concern Left breast: Multi-positional exam postop and postradiation changes fullness in the lower outer quadrant believed to be related to postsurgical changes Left axilla: No adenopathy of concern Assessment and Plan Assessment: Impression: Sarcoidosis left breast [id number]+Her2-G1; positive posterior margin which was on the pectoralis muscle treated with radiation therapy bilateral mammogram 07-08-23 BIRAD 0 lead to a right breast ultrasound 07-08-23 BIRAD 2 The patient is presently on anastrozole Plan: Bilateral mammogram June 2024 follow up after mammogram follow up in [address] Novoa for sarcoid Continue to follow with medical and radiation oncology CC: Dr. Childress
== END ==
LOC: WWCWWP 13:38
PROVIDERS: ATTEND Surgery
DX: R92.8 Other abnormal and inconclusive findings on diagnostic imaging of breast (principal); C50.912 Malignant neoplasm of unspecified site of left female breast; Z17.0 Estrogen receptor positive status [ER+]; D86.9 Sarcoidosis, unspecified; Z92.3 Personal history of irradiation; Z80.3 Family history of malignant neoplasm of breast; Z88.5 Allergy status to narcotic agent

== ENCOUNTER → 2024-07-28 | Outpatient (CLI) | payer MEDICARE, OTHER ==
--- NOTE | 2024-07-28 14:33 | MM ---
Reason for Exam: Hx of breast cancer, conservation therapy. Last screening mammogram was performed 12 month(s) ago. Patient History: Menarche at age 14. First Full-Term at age 26. Left ovary removed at age 54. Right ovary removed at age 54. Hysterectomy at age 54. Postmenopausal. Patient has history of breast feeding. Breast cancer, left, age 69. 12/21/2019, Lumpectomy on the Left side. Malignant Core Biopsy. 10/18/2019, Malignant Core Biopsy on the left side. Paternal grandmother had breast cancer, age 59. Sister had breast cancer, age 66. Prior Study Comparison: 10/13/2019 Left Diagnostic Ultrasound, [facility]. 10/18/2019 Left Diagnostic Mammogram, [facility]. 10/27/2019 Left Diagnostic Ultrasound, [facility]. 12/21/2019 Left Diagnostic Mammogram, [facility]. 09/12/2020 Bilateral Diagnostic Mammogram, [facility]. 09/12/2020 Left Diagnostic Ultrasound, [facility]. 07/04/2021 Bilateral Diagnostic Mammogram, [facility]. 07/04/2021 Left Diagnostic Ultrasound, [facility]. 01/07/2022 Left US breast limited LT, [facility]. 07/05/2022 Bilateral MG 3D diag mammo w/cad [place], [facility]. 07/08/2023 Bilateral MG 3D diag mammo w/cad [place], [facility]. 07/08/2023 Right US breast axilla RT, [facility]. Tissue Density: The breasts are heterogeneously dense, which may obscure small masses. Findings: Analyzed By CAD. Benign-appearing vascular calcification bilaterally is redemonstrated. Occasional tiny benign-appearing round calcification bilaterally is again seen. Stable distortion/posttreatment changes to the left breast. No new suspicious mass or worrisome cluster of microcalcifications bilaterally. Overall Assessment: Benign, BI-RAD 2 Management: Screening Mammogram of both breasts in 1 year. . Results were given to the patient verbally at the time of exam. Patient should continue monthly self-breast exams. A clinical breast exam by your physician is recommended on an annual basis. This exam should not preclude additional follow-up of suspicious palpable abnormalities. Note on Laury scores and lifetime risk: 1. A Laury score greater than 3% is considered moderate risk. If this is the case, consider specialist referral to assess eligibility for a risk reducing agent. 2. If overall lifetime risk for the development of breast cancer is 20% or higher, the patient may qualify for future screening with alternating mammogram and breast MRI. [facility], , 07/28/2024 1:35 PM. Electronically signed and approved by: Miguel Angel Ortega M.D.
== END | disposition home or self-care (01) ==
LOC: RADMAMWWP 13:07
PROVIDERS: ATTEND Surgery
DX: R92.333 Mammographic heterogeneous density, bilateral breasts (principal); Z85.3 Personal history of malignant neoplasm of breast; Z78.0 Asymptomatic menopausal state; Z80.3 Family history of malignant neoplasm of breast
CPT/HCPCS: 77066; G0279; 77062

== ENCOUNTER → 2024-08-05 | Outpatient (CLI) | payer MEDICARE, OTHER ==
[2024-08-05 14:39] VITALS: BP 153/82; PULSE 77; RESP 16; TEMP 98.6
--- NOTE | 2024-08-05 15:08 | P.PN ---
Subjective Progress Note Date: 08/05/24 Principal diagnosis: Left breast invasive lobular carcinoma stage IA [id number]+[id number] Principal diagnosis: Left breast invasive lobular carcinoma stage IA [id number]+Her2-[id number] Principal diagnosis: Left breast invasive lobular carcinoma stage IA [id number]+Pr+Her2-2019 Jayna is a 73-year-old white female diagnosed with left breast invasive lobular carcinoma. 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 She did not have any chemotherapy or radiation therapy. She actually started tamoxifen in 2003. In July 2019 she underwent a bilateral mammogram. This revealed an area of concern in the left breast for which an ultrasound was performed. This subsequently led to a bilateral breast MRI and a biopsy which revealed invasive lobular carcinoma. Additionally she was diagnosed with sarcoidosis. The patient subsequently underwent a lumpectomy on . [place] lymph node was negative. Pathology revealed left breast lumpectomy invasive lobular carcinoma involving the posterior and anterior margins. The anterior margin was reexcised and negative for invasive malignancy however the posterior margin was felt to be on the chest wall and further resection cannot be done. The patient was recommended to undergo radiation therapy. She completed this on 03/10/2020. She did not have any chemotherapy but is receiving anastrozole. On her visit of May 2020 a seroma was aspirated. 45 mL of straw- colored fluid was removed with resolution of the seroma but indentation of the area of the breast. The seroma recurred. She had a bilateral mammogram and left breast ultrasound performed on . The ultrasound revealed a 5.8 x 3.6 cm fluid collection consistent with a seroma. The recommendation was bilateral diagnostic mammogram in one year. Note radiation oncology 12-17-22 reviewed; Dr. Sims on her last visit She is not complaining of any new lumps masses or nodules of concern in either breast. She does have some mild discomfort at the lateral aspect of the left breast over the area of the scar. This has not changed since her surgery. Bilateral mammogram and right breast ultrasound on 07-08-23 BIRAD 2 She is not complaining of any new lumps masses or nodules of concern in either breast Her sarcoidoisis is stable 08-05-24 Left breast invasive lobular carcinoma stage IA [id number]+Pr+Her2-2019 Jayna is a 74-year-old white female diagnosed with left breast invasive lobular carcinoma. 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 She did not have any chemotherapy or radiation therapy. She actually started tamoxifen in 2003. In July 2019 she underwent a bilateral mammogram. This revealed an area of concern in the left breast for which an ultrasound was performed. This subsequently led to a bilateral breast MRI and a biopsy which revealed invasive lobular carcinoma. Additionally she was diagnosed with sarcoidosis. The patient subsequently underwent a lumpectomy on . [place] lymph node was negative. Pathology revealed left breast lumpectomy invasive lobular carcinoma involving the posterior and anterior margins. The anterior margin was reexcised and negative for invasive malignancy however the posterior margin was felt to be on the chest wall and further resection cannot be done. The patient was recommended to undergo radiation therapy. She completed this on 03/10/2020. She did not have any chemotherapy but is receiving anastrozole. On her visit of May 2020 a seroma was aspirated. 45 mL of straw- colored fluid was removed with resolution of the seroma but indentation of the area of the breast. The seroma recurred. She had a bilateral mammogram and left breast ultrasound performed on . The ultrasound revealed a 5.8 x 3.6 cm fluid collection consistent with a seroma. The recommendation was bilateral diagnostic mammogram in one year. She is not complaining of any new lumps masses or nodules of concern in either breast. She does have some mild discomfort at the lateral aspect of the left breast over the area of the scar. This has not changed since her surgery. Bilateral mammogram and right breast ultrasound on 07-28-24 BIRAD 2 She is not complaining of any new lumps masses or nodules of concern in either breast Her sarcoidoisis is stable, she sees Dr. Guevara every 6 months Family history: Sister: Stage III breast cancer Paternal grandmother: Breast cancer Surgical history: Hysterectomy took ovaries, done secondary to the fact the patient was on tamoxifen Cataracts surgery Tonsillectomy Left breast lumpectomy and sentinel node biopsy Medical history: sarcoidosis Social history: Smoking: Negative Alcohol: Negative Drugs: Negative Systems: Constitutional: Negative HEENT: Patient status post cataract surgery Breasts: As per HPI Cardiovascular: Negative Pulmonary: Sarcoidosis GI: Negative : Negative Musculoskeletal: Negative Psychiatric: Negative Endocrine: Negative Bleeding abnormalities: Negative ALLERGIES: Seasonal ALLERGIES Objective - Vital Signs Vital signs: Vital Signs Temp 98.6 F 08/05/24 14:37 Pulse 77 08/05/24 14:37 Resp 16 08/05/24 14:37 BP 153/82 08/05/24 14:37 Pulse Ox 100 08/05/24 14:37 FiO2 Intake & Output 08/04/24 08/05/24 08/05/24 18:59 06:59 18:59 Weight 82.1 kg - Constitutional General appearance: Present: cooperative - EENT Eyes: Present: EOMI ENT: Present: hearing grossly normal - Neck Neck: Present: normal ROM - Respiratory Respiratory: bilateral: CTA - Cardiovascular Rhythm: regular Heart sounds: normal: S1, S2 - Integumentary Integumentary: Present: normal turgor - Musculoskeletal Musculoskeletal: Present: gait normal - Psychiatric Psychiatric: Present: A&O x's 3, appropriate affect, intact judgment & insight - Additional findings Additional findings: Breast Exam: BRA: 36C inspection: left breast smaller than right breast post radiation and surgical changes Palpation: Right breast: Multi-positional exam no dominant masses or nodules of concern right axilla: No adenopathy of concern Left breast: Multi-positional exam postop and postradiation changes fullness in the lower outer quadrant believed to be related to postsurgical changes Left axilla: No adenopathy of concern Assessment and Plan Assessment: Impression: Sarcoidosis left breast [id number]+Her2-G1; positive posterior margin which was on the pectoralis muscle treated with radiation therapy bilateral mammogram 07-28-24 BIRAD 2 The patient is presently on anastrozole Plan: Bilateral mammogram June 2025 follow up after mammogram follow up in [address] Novoa for sarcoid Continue to follow with medical and radiation oncology CC: Dr. Childress Additional CC's: Ana Paula Oglesby
== END ==
LOC: WWCWWP 14:29
PROVIDERS: ATTEND Surgery
DX: C50.912 Malignant neoplasm of unspecified site of left female breast (principal); D86.9 Sarcoidosis, unspecified; Z92.3 Personal history of irradiation; Z88.5 Allergy status to narcotic agent

== ENCOUNTER → 2024-10-06 | Outpatient (CLI) | payer MEDICARE, OTHER ==
--- NOTE | 2024-10-06 15:13 | BD ---
EXAMINATION TYPE: Axial Bone Density DATE OF EXAM: 10/06/2024 CLINICAL HISTORY: 74 years old Female. ICD-10 CODE: M81.0 Osteopenia , Additional History: Height: 64.5 Weight: 182 FRAX RISK QUESTIONS: Family History (Parent hip fracture): no History of Fracture in Adulthood: no Secondary Osteoporosis: no RISK FACTORS HISTORY OF: Surgery to Spine/Hip(right/left)/Wrist (right/left): no MEDICATIONS: Thyroid Medications: no Osteoporosis Medications: no EXAM MEASUREMENTS: Bone mineral densitometry was performed using the [employer] System. Bone mineral density as measured about the Lumbar spine is: ----- L1-L4(G/cm2): 0.975 T Score Values are as follows: ----- L1: -1.2 ----- L2: -1.6 ----- L3: -1.9 ----- L4: -2.1 ----- L1-L4: -1.7 Z Score Values are as follows: ----- L1: 0.0 ----- L2: -0.5 ----- L3: -0.8 ----- L4: -1.0 ----- L1-L4: -0.6 Bone mineral density has: Increased 1.4% since study of: 09-23-2022 Bone mineral density about the R hip (g/cm2): 0.850 Bone mineral density about the L hip (g/cm2): 0.922 T Score values are as follows: -----R Neck: -2.0 -----L Neck: -1.1 -----R Total: -1.3 -----L Total: -0.7 Z Score values are as follows: -----R Neck: -0.5 -----L Neck: 0.3 -----R Total: 0.0 -----L Total: 0.6 Bone mineral density has: Decreased 1.8% since study of: 09-23-2022 FRAX%s: The graph provided illustrates a 12.3% chance for a major osteoporotic fx and a 2.8% chance f or the hips probability for fx in 10 years time. IMPRESSION: Osteopenia (T Score between -2.5 and -1). There is slightly increased risk of fracture and the patient may be considered for treatment. Re-Screen 2-5 years. NOTE: T-SCORE=SD OF THE YOUNG ADULT MEAN. [facility], , 10/06/2024 3:10 PM
== END | disposition home or self-care (01) ==
LOC: RADBDWWP 14:19
PROVIDERS: ATTEND Internal Medicine Hematology & Oncology
DX: M81.0 Age-related osteoporosis without current pathological fracture (principal); I10 Essential (primary) hypertension; M85.89 Other specified disorders of bone density and structure, multiple sites; C50.512 Malignant neoplasm of lower-outer quadrant of left female breast; Z71.3 Dietary counseling and surveillance
CPT/HCPCS: 77080